=== PATIENT | female | born 1945 | race Caucasian/White ===

== ENCOUNTER → 2016-09-08 | Outpatient (CLI) | payer OTHER | LOC: FIMAGING 11:09 | PROVIDERS: ATTEND Internal Medicine Hematology & Oncology | DX: K76.0 Fatty (change of) liver, not elsewhere classified (principal); K80.20 Calculus of gallbladder without cholecystitis without obstruction; Z85.3 Personal history of malignant neoplasm of breast; Z85.72 Personal history of non-Hodgkin lymphomas ==

== ENCOUNTER 2016-11-04 09:32 | Day surgery (SDC) | payer OTHER ==
[2016-11-04] MEDS ORDERED: NS 1,000 ML IV SCH (10:00)
[2016-11-04] MEDS ORDERED: ONDANSETRON 4 MG/2 ML VIAL ONE ×2 (10:29→16:17)
[2016-11-04] MEDS ORDERED: FLUMAZENIL 0.5 MG/5 ML MDV IVP ONE (10:29)
[2016-11-04] MEDS ORDERED: NALOXONE HCL 0.4 MG/ML INJ ONE (10:30)
[2016-11-04] MEDS ORDERED: fentaNYL 100 MCG/2 ML INJ ONE (10:30)
[2016-11-04] MEDS ORDERED: MIDAZOLAM 2 MG/2 ML VIAL ONE (10:30)
[2016-11-04 10:57] LABS: HEMATOCRIT 38.3 % (38.0-47.0)
[2016-11-04 11:07] LABS: INR 0.89 (0.83-1.16); PROTIME(PATIENT) 11.9 SEC (12.0-15.0)
[2016-11-04 11:08] LABS: APTT 30.3 SEC (23.0-38.0)
[2016-11-04 14:30] VITALS: RESP 16; TEMP 97.7
[2016-11-04 16:22] VITALS: BP 144/67; O2SAT 94
== END 2016-11-04 16:35 | disposition home or self-care (01) ==
LOC: FIMAGING 09:32
PROVIDERS: ATTEND Radiology Diagnostic Radiology
PROC: 0BBF3ZX Excision of Right Lower Lung Lobe, Percutaneous Approach, Diagnostic (ICD-10-PCS; principal; 2016-11-04 13:17)
PROC: 0BB63ZX Excision of Right Lower Lobe Bronchus, Percutaneous Approach, Diagnostic (ICD-10-PCS; principal; 2016-11-04 13:17)
DX: C78.01 Secondary malignant neoplasm of right lung (principal); I10 Essential (primary) hypertension; C85.90 Non-Hodgkin lymphoma, unspecified, unspecified site; Z85.3 Personal history of malignant neoplasm of breast; Z90.10 Acquired absence of unspecified breast and nipple
CPT/HCPCS: J2250; J2310; J2405; J3010

== ENCOUNTER 2016-11-06 23:03 | Observation (INO) | payer OTHER ==
--- NOTE | 2016-11-06 23:10 | EDPHY ---
H & P Stated Complaint: pain with breathing, fever after R lung biopsy HPI/ROS: HPI CHIEF COMPLAINT: [ ] HISTORY OF PRESENT ILLNESS: [Need 4: Location, Duration, Severity, Quality, Context, Timing Modifying Factors, Associated S&S] Past Medical History: Breast cancer status post bilateral mastectomy reconstruction, hypertension, GERD, Past Surgical History: Hysterectomy, bilateral mastectomy, tonsillectomy, adenoidectomy Social History: Denies daily use of drugs alcohol tobacco products. Family History: Noncontributory ROS REVIEW OF SYSTEMS: A comprehensive 10 point review of systems is otherwise negative aside from elements mentioned in the history of present illness. Exam Constitutional triage nursing summary reviewed, vital signs reviewed, awake/ alert. Eyes normal conjunctivae and sclera, EOMI, PERRLA. HENT normal inspection, atraumatic, moist mucus membranes, no epistaxis, neck supple/ no meningismus, no raccoon eyes. Respiratory clear to auscultation bilaterally, normal breath sounds, no respiratory distress, no wheezing. Cardiovascular rate normal, regular rhythm, no murmur, no edema, distal pulses normal. Gastrointestinal soft, non-tender, no rebound, no guarding, normal bowel sounds, no distension, no pulsatile mass. Genitourinary no CVA tenderness. Musculoskeletal no midline vertebral tenderness, full range of motion, no calf swelling, no tenderness of extremities, no meningismus, good pulses, neurovascularly intact. Skin pink, warm, & dry, no rash, skin atraumatic. Neurologic awake, alert and oriented x 3, AAOx3, moves all 4 extremities equally, motor intact, sensory intact, CN II-XII intact, normal cerebellar, normal vision, normal speech. Psychiatric normal mood/affect. Heme/Lymph/Immune no lymphadenopathy. Differential Diagnosis: Medical Decision Making: Re-evaluation: Source: Patient - Personal History Current Tetanus/Diphtheria Vaccine: Unsure Current Tetanus Diphtheria and Acellular Pertussis (TDAP): Unsure - Medical/Surgical History Hx Asthma: No Hx Chronic Respiratory Disease: No Hx Diabetes: No Hx Cardiac Disease: No Hx Renal Disease: No Hx Cirrhosis: No Hx Alcoholism: No Hx HIV/AIDS: No Hx Splenectomy or Spleen Trauma: No Other PMH: hysterectomy, mastectomy, HTN, breast CA, nonhodgkins lymphoma 31years ago - Social History Smoking Status: Never smoked Constitutional: Initial Vital Signs Temperature (C) 37.6 C 11/06/16 23:05 Heart Rate 82 11/06/16 23:05 Respiratory Rate 18 11/06/16 23:05 Blood Pressure 162/65 H 11/06/16 23:05 O2 Sat (%) 97 11/06/16 23:05 O2 Delivery Mode Room Air Allergies/Adverse Reactions: hydrocodone bitartrate [From Vicodin] Allergy (Severe, Verified 10/21/16 17:38) Vomiting iodine Allergy (Severe, Verified 10/21/16 17:38) "carotid closes up" oxycodone HCl [From Percocet] Allergy (Severe, Verified 10/21/16 17:38) Vomiting HAYFEVER Allergy (Mild, Uncoded 07/28/12 15:37) ITCHY EYES/SNEEZING/RUNNY NOSE Home Medications: Medication Instructions Recorded Calcium Carbonate [Tums 500MG 500 - 1,000 mg PO PRN 07/28/12 (OTC)] Lisinopril/Hctz 20/12.5MG 1 ea PO BID 07/28/12 [Zestoretic/Prinzide] Cetirizine [ZyrTEC 10 mg (RX)] 10 mg PO PRN 09/14/12 Meloxicam 10/28/16 Departure - Departure Referrals: Epifanio Flowers MD [Primary Care Provider] - As per Instructions
--- NOTE | 2016-11-06 23:26 | EDPHY ---
H & P Stated Complaint: pain with breathing, fever after R lung biopsy Source: Patient, Old records - Personal History Current Tetanus/Diphtheria Vaccine: Unsure Current Tetanus Diphtheria and Acellular Pertussis (TDAP): Unsure - Medical/Surgical History Hx Asthma: No Hx Chronic Respiratory Disease: No Hx Diabetes: No Hx Cardiac Disease: No Hx Renal Disease: No Hx Cirrhosis: No Hx Alcoholism: No Hx HIV/AIDS: No Hx Splenectomy or Spleen Trauma: No Other PMH: hysterectomy, mastectomy, HTN, breast CA, nonhodgkins lymphoma 31years ago - Social History Smoking Status: Never smoked Time Seen by Provider: 11/06/16 23:14 HPI/ROS: CHIEF COMPLAINT: Shortness of breath fever HISTORY OF PRESENT ILLNESS: This is a 71-year-old female presenting to the emergency department complaining of shortness of breath with fever onset at 1700 today. Patient states she did have a lung biopsy on 11/04/2016 without complications, patient states she had been doing fine after the procedure until today. She does report taking 1000 mg of Tylenol at 2200 this evening, felt a little better but still having shortness of breath nausea fatigue, more tenderness to the area where the biopsy was performed. Denies any chest pain REVIEW OF SYSTEMS: Constitutional: Fever chills Eyes: No discharge. ENT: No sore throat. Cardiovascular: No chest pain, no palpitations. Respiratory: No cough. Shortness of breath. Gastrointestinal: No abdominal pain, no vomiting. Nausea Genitourinary: No hematuria. Musculoskeletal: Right-sided back pain. Skin: No rashes. Neurological: No headache (Alyce Reid) - Physical Exam Exam: General Appearance: Alert, no distress. Non ill nontoxic appearing Eyes: Pupils equal and round no pallor or injection. ENT, Mouth: Mucous membranes moist. Respiratory: There are no retractions, nonlabored respiratory effort. Diminished at the right base Cardiovascular: Regular rate and rhythm. Gastrointestinal: Abdomen is soft and nontender, no masses, bowel sounds normal. Neurological: No focal deficits. Answering questions appropriately Skin: Warm and dry, no rashes. Musculoskeletal: Neck is supple nontender. right posterior back tenderness at the area of lung biopsy no erythema Extremities: symmetrical, full range of motion. Psychiatric: Patient is oriented X 3, there is no agitation. (Alyce Reid) Constitutional: Initial Vital Signs Temperature (C) 37.6 C 07/29/17 23:05 Heart Rate 82 11/06/16 23:05 Respiratory Rate 18 11/06/16 23:05 Blood Pressure 162/65 H 11/06/16 23:05 O2 Sat (%) 97 11/06/16 23:05 O2 Delivery Mode Room Air Allergies/Adverse Reactions: hydrocodone bitartrate [From Vicodin] Allergy (Severe, Verified 11/07/16 08:19) Vomiting iodine Allergy (Severe, Verified 11/07/16 08:19) "carotid closes up" oxycodone HCl [From Percocet] Allergy (Severe, Verified 11/07/16 08:19) Vomiting HAYFEVER Allergy (Mild, Uncoded 07/28/12 15:37) ITCHY EYES/SNEEZING/RUNNY NOSE Home Medications: Medication Instructions Recorded Calcium Carbonate [Tums 500MG (*)] 500 - 1,000 mg PO DAILY PRN 07/28/12 Lisinopril/Hctz 20/12.5MG 1 ea PO BID 07/28/12 [Zestoretic/Prinzide 20/12.5MG (*)] Meloxicam 15 mg PO DAILY 11/07/16 Medical Decision Making - Diagnostics Imaging Results: Imaging Impressions Chest CT 11/07/16 00:36 Impression: 1. Mild right-sided pneumothorax in the order of about 10-15%. 2. Lobulated mass once again noted at the right lung base posteriorly. This was recently biopsied. 3. Cholelithiasis. 4. Right upper pole renal cyst. The study was performed as an emergency on-call case and discussed by telephone with Alyce Reid NP at 0102 hrs. The final interpretation is concordant with the original communication. ED Course/Re-evaluation: Discussed ED plan of care: CBC, BMP, chest x-ray 0030: Patient states feeling better, nonlabored respiratory distress denies any shortness of breath no chest pain 0105: Spoke with Dr. Calderon small right-sided pneumothorax 0110: Dr. Harris and consult with Dr. Spence patient to be inpatient Obs for 24 hours repeat chest x-ray tomorrow 0120: Discussed plan with patient, patient agreed. Stable nonlabored respiratory effort no hypoxia no chest pain (Alyce Reid) Differential Diagnosis: Other differential diagnosis considered but not limited to hemopneumothorax, pneumonia, pleural effusion and sepsis (Alyce Reid) - Data Points Laboratory Results: Laboratory Results 11/06/16 23:35 11/06/16 23:35 Medications Given: Discontinued Medications Ibuprofen (Motrin) 600 mg PO EDNOW ONE Stop: 11/06/16 23:31 Last Admin: 11/06/16 23:32 Dose: 600 mg Departure - Departure Disposition: [facility] Inpatient Acute Clinical Impression: Pneumothorax Qualifiers: Pneumothorax type: postprocedural Qualified Code(s): J95.811 - Postprocedural pneumothorax Condition: Good
[2016-11-06] MEDS ORDERED: IBUPROFEN 600 MG TAB PO ONE ×2 (23:30)
[2016-11-07 00:04] LABS: % IMMATURE GRANULYOCYTES 0.4 % (0.0-1.1); ABSOLUTE IMMATURE GRANULOCYTES 0.03 10^3/uL (0.00-0.10); ADD DIFF? NO; ADD MORPH? NO; ADD SCAN? NO; ATYPICAL LYMPHOCYTE FLAG 0 (0-99); FRAGMENT RBC FLAG 0 (0-99); HEMATOCRIT 31.4 % (38.0-47.0); LEFT SHIFT FLG 0 (0-99); LIPEMIA HEMOLYSIS FLAG 90 (0-99); MEAN CELL HEMOGLOBIN 28.9 pg (27.9-34.1); MEAN CELL VOLUME 82.6 fL (81.5-99.8); MEAN PLATELET VOLUME 9.7 fL (8.7-11.7); PLATELET CLUMPS FLAG 0 (0-99); PLATELET COUNT 282 10^3/uL (150-400); RED CELL DISTRIBUTION WIDTH 14.2 % (11.5-15.2)
[2016-11-07 00:22] LABS: ANION GAP 11 mEq/L (8-16); CALCIUM 9.7 mg/dL (8.5-10.4); CARBON DIOXIDE 22 mEq/l (22-31); CHLORIDE 103 mEq/L (97-110); CREATININE 1.1 mg/dL (0.6-1.0); GLOMERULAR FILTRATION RATE 49; GLUCOSE 129 mg/dL (70-100); POTASSIUM 3.5 mEq/L (3.5-5.2); SODIUM 136 mEq/L (134-144)
[2016-11-07] MEDS ORDERED: PROMETHAZINE HCL 25 MG/ML INJ IVP PRN (04:14)
[2016-11-07] MEDS ORDERED: ONDANSETRON 4 MG/2 ML VIAL IVP PRN (04:14)
[2016-11-07] MEDS ORDERED: ALBUTEROL 3 ML DEYVIAL IH PRN (04:14)
[2016-11-07] MEDS ORDERED: oxyCODONE IR 5 MG TAB PO PRN (04:14)
[2016-11-07] MEDS ORDERED: HYDROmorphONE/DILAUDID 1 MG/ML SYR IVP PRN (04:14)
[2016-11-07] MEDS ORDERED: ACETAMINOPHEN 325 MG TAB PO PRN (04:14)
[2016-11-07] MEDS ORDERED: ONDANSETRON DISINTEGRATING 4 MG TAB PO PRN (04:14)
--- NOTE | 2016-11-07 07:55 | PDGENHP ---
History and Physical - Chief Complaint chest pain/sob - History of Present Illness 71 yo F wiht PMH of breast cancer as well as NHL admitted today with chest pain and sob after undergoing needle lung biopsy for a lung mass on 11/05. She was seen in the ER and initially no abnormalities noted on chest x ray. Her symptoms did not improve despite monitoring in the ER for several hours and therefore a CT scan was obtained showing a 10-15% pneumothorax. She has otherwise felt well and has no other complaints. She feels better with the oxygen on but still has chest discomfort when she takes a deep breath or is moving. The scan was discussed with IR by the ER doctor, and they recommended that given the small size, conservative management would be appropriate but they will follow while she is in house. History Information - Allergies/Home Medication List Allergies/Adverse Reactions: hydrocodone bitartrate [From Vicodin] Allergy (Severe, Verified 10/21/16 17:38) Vomiting iodine Allergy (Severe, Verified 10/21/16 17:38) "carotid closes up" oxycodone HCl [From Percocet] Allergy (Severe, Verified 10/21/16 17:38) Vomiting HAYFEVER Allergy (Mild, Uncoded 07/28/12 15:37) ITCHY EYES/SNEEZING/RUNNY NOSE Home Medications: Calcium Carbonate [Tums 500MG (OTC)] 500 - 1,000 mg PO PRN 07/28/12 [Last Taken 05/11/12] Lisinopril/Hctz 20/12.5MG [Zestoretic/Prinzide] 1 ea PO BID 07/28/12 [Last Taken 10/21/16] Cetirizine [ZyrTEC 10 mg (RX)] 10 mg PO PRN 09/14/12 [Last Taken Unknown] Meloxicam 15 mg PO DAILY 11/07/16 [Last Taken Unknown] Pravastatin Sodium 20 mg PO DAILY 11/07/16 [Last Taken Unknown] I have personally reviewed and updated: family history, medical history, social history, surgical history - Past Medical History cancer (breast cancer, NHL), GERD, hypertension - Surgical History Reports: cancer surgery (mastectomy), hysterectomy Additional surgical history: cataract surgery. tonsillectomy - Family History Positive for: cancer (mother/aunt/cousin with breast cancer) - Social History Smoking Status: Never smoked Alcohol Use: Rarely Drug Use: None Review of Systems ROS: 10pt was reviewed & negative except for what was stated in HPI & below Physical Exam Temp Pulse Resp BP Pulse Ox 36.6 C 52 L 18 136/70 H 98 11/07/16 06:00 11/07/16 06:00 11/07/16 06:00 11/07/16 06:00 11/07/16 06:00 O2 (L/minute) 2 Constitutional: no apparent distress, appears nourished Eyes: PERRL Ears, Nose, Mouth, Throat: moist mucous membranes, hearing normal Cardiovascular: regular rate and rhythym, no murmur, rub, or gallop, systolic murmur Respiratory: no respiratory distress, no rales or rhonchi, reduced air movement Gastrointestinal: normoactive bowel sounds, soft, non-tender abdomen Genitourinary: no bladder tenderness Skin: warm, normal color Musculoskeletal: full muscle strength, no muscle tenderness Neurologic: AAOx3 Psychiatric: interacting appropriately, not anxious, not encephalopathic Lab Data & Imaging Review 11/06/16 23:35 11/06/16 23:35 WBC 7.60 10^3/uL (3.80-9.50) 11/06/16 23:35 RBC 3.80 10^6/uL (4.18-5.33) L 11/06/16 23:35 Hgb 11.0 g/dL (12.6-16.3) L 11/06/16 23:35 Hct 31.4 % (38.0-47.0) L 11/06/16 23:35 MCV 82.6 fL (81.5-99.8) 11/06/16 23:35 MCH 28.9 pg (27.9-34.1) 11/06/16 23:35 MCHC 35.0 g/dL (32.4-36.7) 11/06/16 23:35 RDW 14.2 % (11.5-15.2) 11/06/16 23:35 Plt Count 282 10^3/uL (150-400) D 11/06/16 23:35 MPV 9.7 fL (8.7-11.7) 11/06/16 23:35 Neut % (Auto) 75.3 % (39.3-74.2) H 11/06/16 23:35 Lymph % (Auto) 13.8 % (15.0-45.0) L 11/06/16 23:35 [place] % (Auto) 8.0 % (4.5-13.0) 11/06/16 23:35 Eos % (Auto) 2.0 % (0.6-7.6) 11/06/16 23:35 Baso % (Auto) 0.5 % (0.3-1.7) 11/06/16 23:35 Nucleat RBC Rel Count 0.0 % (0.0-0.2) 11/06/16 23:35 Absolute Neuts (auto) 5.72 10^3/uL (1.70-6.50) 11/06/16 23:35 Absolute Lymphs (auto) 1.05 10^3/uL (1.00-3.00) 11/06/16 23:35 Absolute Monos (auto) 0.61 10^3/uL (0.30-0.80) 11/06/16 23:35 Absolute Eos (auto) 0.15 10^3/uL (0.03-0.40) 11/06/16 23:35 Absolute Basos (auto) 0.04 10^3/uL (0.02-0.10) 11/06/16 23:35 Absolute Nucleated RBC 0.00 10^3/uL (0-0.01) 11/06/16 23:35 Immature Gran % 0.4 % (0.0-1.1) 11/06/16 23:35 Immature Gran # 0.03 10^3/uL (0.00-0.10) 11/06/16 23:35 Sodium 136 mEq/L (134-144) 11/06/16 23:35 Potassium 3.5 mEq/L (3.5-5.2) 11/06/16 23:35 Chloride 103 mEq/L (97-110) 11/06/16 23:35 Carbon Dioxide 22 mEq/l (22-31) 11/06/16 23:35 Anion Gap 11 mEq/L (8-16) 11/06/16 23:35 BUN 17 mg/dL (7-23) 11/06/16 23:35 Creatinine 1.1 mg/dL (0.6-1.0) H 11/06/16 23:35 Estimated GFR 49 11/06/16 23:35 Glucose 129 mg/dL (70-100) H 11/06/16 23:35 Calcium 9.7 mg/dL (8.5-10.4) 11/06/16 23:35 Visualized and Interpreted imaging results: Yes Interpretation: CT chest with right sided pneumothorax Assessment & Plan Assessment: Pneumothorax (Acute) 71 yo F with PMH of breast cancer as well as NHL presenting with right sided ptx s/p needle biopsy of lung mass # pneumothorax: relatively small and patient only mildly symptomatic with a plan to manage conservatively for now with supplemental o2 and serial imaging. IR is aware and will follow. Will try to keep sats in the high 90s with supplemental o2. # lung mass: s/p biopsy with pathology pending, on personal review of CT scan noted to have a lobulated RLL mass # hx of breast cancer/hx of NHL # observation status, will likely need < 48 hours stay for eval/mgmt of above Patient new to my care. Old records reviewed and summarized as above. Care plan reviewed with ER doctor.
[2016-11-07 15:51] VITALS: BP 139/78; PULSE 77; RESP 16; TEMP 98.2; O2SAT 91
--- NOTE | 2016-11-08 06:33 | GDS ---
[f rep st] DISCHARGE SUMMARY DISCHARGE DIAGNOSES: 1. Right-sided pneumothorax, status post lung biopsy. 2. History of non-Hodgkin lymphoma. HISTORY: This is a 71-year-old female with a history of breast cancer, non-Hodgkin lymphoma, who pr esented with chest pain, shortness of breath after lung biopsy 2 days prior. HOSPITAL COURSE: The patient was noted to have 10% to 15% pneumothorax. She was monitored overnigh t. Repeat chest x-ray about 16 hours later did not show any change in the pneumothorax. Her sympto ms are well controlled with just Tylenol. The case was discussed with Interventional Radiology. Sh e will be discharged home, and will follow up tomorrow to get another chest x-ray. Interventional R adiology is aware and will look for the chest x-ray. /[id number]/MODL
== END 2016-11-07 17:50 | disposition home or self-care (01) ==
LOC: F1N 11-07 02:20
PROVIDERS: ADMIT Internal Medicine; ATTEND Internal Medicine
DX: J95.811 Postprocedural pneumothorax (principal); R91.1 Solitary pulmonary nodule; I10 Essential (primary) hypertension; N28.1 Cyst of kidney, acquired; K80.20 Calculus of gallbladder without cholecystitis without obstruction; Z85.3 Personal history of malignant neoplasm of breast; Z85.72 Personal history of non-Hodgkin lymphomas; Z80.3 Family history of malignant neoplasm of breast
CPT/HCPCS: 71020; 71250; G0378

== ENCOUNTER 2017-01-15 15:18 | Inpatient (IN) | payer OTHER ==
--- NOTE | 2017-01-15 15:37 | EDPHY ---
H & P Stated Complaint: diarrhea daily x 1 wk, heartburn x 1 wk, throbbing JOHNSON HPI/ROS: CHIEF COMPLAINT: Diarrhea, Heart burn, Headache HISTORY OF PRESENT ILLNESS: The patient is a 71-year-old female with history of breast cancer with metastasis to the lung. She was on chemotherapy, but stopped taking it yesterday of her own accord. She presents today with 1 week of diarrhea. She reports 5 episodes per day. She has been drinking coke with corn starch for her diarrhea, but has not found any relief. The patient has a history of GERD which she manages with diet. For the past week she has been experiencing severe heart burn. This pain remains constant, it is alleviated temporarily with milk and Pepto Bismol. The patient developed a headache and lightheadedness when standing today. Her headache improves when lying down. She checked her blood pressure at home and found it to be 60s/50s. She feels weaker than usual when standing. The patient denies fever, abdominal pain, or urinary complaints. REVIEW OF SYSTEMS: A ten point review of systems was performed and is negative with the exception of the items mentioned in the HPI. Past medical history: Breast caner with metastasis to the lung, GERD, Hypertension Past surgical history: Mastectomy, Hysterectomy, Tonsillectomy Family history: Positive for cancer. Social history: Nonsmoker. Rare alcohol use. No drug use. General Appearance: Alert. Vital signs reviewed. BP 110/69, heart rate 108 at triage. Eyes: Pupils equal and round, no conjunctival injection, no discharge. Anicteric. ENT, Mouth: Mucous membranes are moist, no oropharyngeal erythema or edema. Neck: No lymphadenopathy, supple. Respiratory: Lungs are clear to auscultation; no wheezes, rales, or rhonchi. Cardiovascular: Tachycardic; no murmur, rub, or gallop. Gastrointestinal: Abdomen is soft and nontender, no masses or organomegaly, bowel sounds normal. Skin: Warm and dry, no rashes on exposed skin, normal color. Back: Nontender to palpation over the thoracolumbar spine. No CVAT. Extremities: No lower extremity edema, no calf tenderness or swelling. Neurological: Alert and oriented. Moving all four extremities easily and equally. Psychiatric: Normal affect. Source: Patient Exam Limitations: No limitations - Personal History Current Tetanus/Diphtheria Vaccine: Unsure Current Tetanus Diphtheria and Acellular Pertussis (TDAP): Unsure - Medical/Surgical History Hx Asthma: No Hx Chronic Respiratory Disease: No Hx Diabetes: No Hx Cardiac Disease: No Hx Renal Disease: No Hx Cirrhosis: No Hx Alcoholism: No Hx HIV/AIDS: No Hx Splenectomy or Spleen Trauma: No Other PMH: hysterectomy, mastectomy, HTN, breast CA, nonhodgkins lymphoma - Social History Smoking Status: Never smoked Constitutional: Initial Vital Signs Temperature (C) 37.1 C 01/15/17 15:27 Heart Rate 108 H 01/15/17 15:27 Respiratory Rate 16 01/15/17 15:27 Blood Pressure 110/69 01/15/17 15:27 O2 Sat (%) 95 01/15/17 15:27 O2 Delivery Mode Room Air Allergies/Adverse Reactions: hydrocodone bitartrate [From Vicodin] Allergy (Severe, Verified 11/07/16 08:19) Vomiting iodine Allergy (Severe, Verified 11/07/16 08:19) "carotid closes up" oxycodone HCl [From Percocet] Allergy (Severe, Verified 11/07/16 08:19) Vomiting HAYFEVER Allergy (Mild, Uncoded 07/28/12 15:37) ITCHY EYES/SNEEZING/RUNNY NOSE Home Medications: Medication Instructions Recorded Lisinopril/Hctz 20/12.5MG 1 ea PO BID 01/15/17 [Zestoretic/Prinzide 20/12.5MG (*)] Meloxicam 15 mg PO DAILY 01/15/17 Medical Decision Making - Diagnostics EKG Interpretation: 12 lead EKG is interpreted in Trace master View by cardiology physician. I have reviewed the EKG. Sinus rhythm, borderline T abnormalities. Rate 86. ED Course/Re-evaluation: Patient with history of breast cancer, previously on chemotherapy, but decided to stop two days ago. She presents today with 1 week of diarrhea and esophageal burning. The patient reports a minimum of 5 episodes of diarrhea per day. She has been feeling lightheaded and weak. Her blood pressure at home was reportedly in the 60s. The patient is orthostatic here. I ordered lab work including CBC, chemistry, and Troponin. The patient declined Pepcid originally. She now accepts it and is no longer having heart burn. I ordered an EKG. The patient had a cardiac work up within the last year including a Nuclear stress test. Per the patient, the test was normal. We do not have a report of this test. The patient's lab work shows hyponatremia, likely due to dehydration. Her creatinine is elevated at 1.4 (also likely due to volume depletion) and her WBC is also elevated. I ordered a GI pathogen panel when she is able to provide a stool sample. DDX includes infectious diarrhea vs side effect of chemo. C. difficile always a concern in this setting. 5:15 p.m.: I discussed the findings with the patient. Troponin is normal. I think that her esophageal burning pain is acid reflux, not ACS. The patient lives at home alone. I recommend admission for further hydration, stool studies. She is receiving IV fluids. She is no longer having heart burn. 5:30 p.m.: I spoke to the hospitalist, Dr. Graham, she accepts the patient for admission. - Data Points Laboratory Results: Laboratory Results 01/16/17 05:21 01/16/17 05:21 Medications Given: Acetaminophen (Tylenol) 650 mg PO Q4 PRN PRN Reason: Pain, Mild/Fever, Can Take PO Stop: 07/14/17 19:57 Last Admin: 01/17/17 21:24 Dose: 650 mg Diphenoxylate HCl/Atropine (Lomotil) 1 tab PO QID PRN PRN Reason: Diarrhea/Loose Stools Stop: 07/17/17 16:14 Last Admin: 01/20/17 22:41 Dose: 1 tab Enoxaparin Sodium (Lovenox) 40 mg SC DAILY [facility] Stop: 07/15/17 08:59 Last Admin: 01/20/17 09:29 Dose: Not Given Hyoscyamine Sulfate (Levsin, Hyomax-Sl) 0.125 mg PO Q6HRS PRN PRN Reason: Cramping abdominal pain. Stop: 07/17/17 09:17 Last Admin: 01/20/17 12:08 Dose: 0.125 mg Levofloxacin (Levaquin) 500 mg PO DAILY10 [facility] Stop: 02/18/17 09:59 Last Admin: 01/20/17 09:29 Dose: 500 mg Pantoprazole Sodium (Protonix) 40 mg PO DAILY [facility] Stop: 07/15/17 08:59 Last Admin: 01/20/17 09:29 Dose: 40 mg Discontinued Medications Azithromycin (Zithromax) 500 mg PO DAILY [facility] PRN Reason: Protocol Stop: 02/16/17 20:29 Last Admin: 01/18/17 21:31 Dose: 500 mg Sodium Chloride (Ns) 1,000 mls @ 0 mls/hr IV EDNOW ONE; Wide Open PRN Reason: Protocol Stop: 01/15/17 16:01 Last Admin: 01/15/17 16:17 Dose: 1,000 mls Famotidine/Sodium Chloride (Pepcid 20 Mg (Premix)) 50 mls @ 200 mls/hr IV EDNOW ONE Stop: 01/15/17 17:47 Last Admin: 01/15/17 17:41 Dose: 50 mls Sodium Chloride (Ns) 1,000 mls @ 125 mls/hr IV CONT [facility] Stop: 07/14/17 19:59 Last Admin: 01/19/17 23:46 Dose: 1,000 mls Potassium Chloride (Potassium Cl 10 Meq (Premix)) 100 mls @ 100 mls/hr IV Q1H [facility] Stop: 01/16/17 02:29 Last Admin: 01/16/17 05:24 Dose: Not Given Potassium Chloride (Potassium Cl 10 Meq (Premix)) 100 mls @ 100 mls/hr IV ONCE ONE Stop: 01/16/17 06:14 Last Admin: 01/16/17 05:24 Dose: 100 mls Ceftriaxone Sodium/Dextrose (Rocephin 1 Gm (Premix)) 50 mls @ 100 mls/hr IV DAILY [facility] PRN Reason: Protocol Stop: 02/16/17 11:29 Last Admin: 01/18/17 09:02 Dose: 50 mls Magnesium Sulfate (Magnesium Sulf 2 Gm (Premix)) 50 mls @ 50 mls/hr IV ONCE ONE Stop: 01/17/17 16:27 Last Admin: 01/17/17 15:50 Dose: 50 mls Magnesium Sulfate (Magnesium Sulf 2 Gm (Premix)) 50 mls @ 50 mls/hr IV ONCE ONE Stop: 01/18/17 10:59 Last Admin: 01/18/17 09:20 Dose: Not Given Magnesium Sulfate/Dextrose (Magnesium Sulf 1 Gm (Premix)) 100 mls @ 100 mls/hr IV ONCE ONE Stop: 01/19/17 09:59 Last Admin: 01/19/17 08:09 Dose: 100 mls Loperamide HCl (Imodium) 2 mg PO QID PRN PRN Reason: Diarrhea/Loose Stools Stop: 07/15/17 21:43 Last Admin: 01/18/17 03:44 Dose: 2 mg Potassium Chloride (Klor-Con) 10 - 40 meq PO ONCE ONE PRN Reason: Protocol Stop: 01/16/17 10:33 Last Admin: 01/16/17 11:10 Dose: 20 meq Potassium Chloride (Klor-Con) 20 meq PO ONCE ONE PRN Reason: Protocol Stop: 01/16/17 11:16 Last Admin: 01/16/17 12:24 Dose: Not Given Potassium Chloride (Klor-Con) 40 meq PO ONCE ONE Stop: 01/18/17 23:31 Last Admin: 01/18/17 23:49 Dose: 40 meq Potassium Chloride (Klor-Con) 40 meq PO ONCE ONE Stop: 01/19/17 07:46 Last Admin: 01/19/17 09:47 Dose: 40 meq Departure - Departure Disposition: [facility] Inpatient Acute Clinical Impression: Diarrhea Qualifiers: Diarrhea type: unspecified type Qualified Code(s): R19.7 - Diarrhea, unspecified Condition: Fair Report Scribed for: Kirti Pierre Report Scribed by: Sunni Cho Date of Report: 01/15/17 Time of Report: 15:58 Physician Review and Approval Statement: 01/15/17 15:36 Portions of this note were transcribed by the medical genetics director. I, Dr. Kirti Pierre, personally performed the history, physical exam, and medical decision- making; and confirmed the accuracy of the information in the transcribed note.
[2017-01-15] MEDS ORDERED: NS 1,000 ML IV ONE (16:00)
[2017-01-15 16:06] LABS: % IMMATURE GRANULYOCYTES 0.3 % (0.0-1.1); ABSOLUTE IMMATURE GRANULOCYTES 0.03 10^3/uL (0.00-0.10); ADD DIFF? NO; ADD MORPH? NO; ADD SCAN? NO; ATYPICAL LYMPHOCYTE FLAG 0 (0-99); FRAGMENT RBC FLAG 0 (0-99); HEMATOCRIT 32.2 % (38.0-47.0); HEMOGLOBIN 11.8 g/dL (12.6-16.3); LEFT SHIFT FLG 10 (0-99); LIPEMIA HEMOLYSIS FLAG 90 (0-99); MEAN CELL HEMOGLOBIN 31.5 pg (27.9-34.1); MEAN CELL HEMOGLOBIN CONCENTR. 36.6 g/dL (32.4-36.7); MEAN CELL VOLUME 85.9 fL (81.5-99.8); MEAN PLATELET VOLUME 8.9 fL (8.7-11.7); PLATELET CLUMPS FLAG 0 (0-99); PLATELET COUNT 370 10^3/uL (150-400); RED BLOOD CELL COUNT 3.75 10^6/uL (4.18-5.33); RED CELL DISTRIBUTION WIDTH 19.9 % (11.5-15.2)
[2017-01-15 16:21] LABS: ANION GAP 16 mEq/L (8-16); CALCIUM 11.2 mg/dL (8.5-10.4); CARBON DIOXIDE 23 mEq/l (22-31); CHLORIDE 90 mEq/L (97-110); CREATININE 1.4 mg/dL (0.6-1.0); GLOMERULAR FILTRATION RATE 37; GLUCOSE 132 mg/dL (70-100); POTASSIUM 3.3 mEq/L (3.5-5.2); SODIUM 129 mEq/L (134-144)
--- NOTE | 2017-01-15 16:26 | CPEKG ---
Heart Rate: 86 RR Interval: 698 P-R Interval: 124 QRSD Interval: 84 QT Interval: 324 QTC Interval: 388 P [place]: 54 QRS [place]: 10 T Wave [place]: -8 EKG Severity - BORDERLINE ECG - EKG Impression: SINUS RHYTHM EKG Impression: BORDERLINE T ABNORMALITIES, INFERIOR LEADS Electronically Signed By: Jan Garcia 16-Jan-2017 09:43:25
[2017-01-15] MEDS ORDERED: FAMOTIDINE 20 MG/NACL 50 ML IV ONE (17:33)
[2017-01-15] MEDS ORDERED: PROMETHAZINE HCL 25 MG/ML INJ IVP PRN (19:58)
[2017-01-15] MEDS ORDERED: ONDANSETRON 4 MG/2 ML VIAL IVP PRN (19:58)
[2017-01-15] MEDS ORDERED: PROTOCOL POTASSIUM 1 DOSE MISC PRN (19:59)
--- NOTE | 2017-01-15 20:51 | GHP ---
[f rep st] HISTORY AND PHYSICAL DATE OF ADMISSION: 01/15/2017 CHIEF COMPLAINT: Diarrhea. HISTORY OF PRESENT ILLNESS: The patient is a 71-year-old female, with breast cancer and lung metasta ses, on chemotherapy. She presents with severe diarrhea 5 times a day for the last week. She is get ting more weak at home. Specifically, when she tried to get, her head would throb and she would get so weak she would have to flop back down on a chair or the bed. She feels very dehydrated. She has GERD, which is getting much worse. She has had decreased p.o. intake due to the severe heartburn. A lso, whenever she eats anything, it goes right through her. PAST MEDICAL HISTORY: 1. Breast cancer with lung metastases. 2. Non-Hodgkin lymphoma 31 years ago. 3. Peripheral neuropathy due to chemotherapy. 4. GERD. PAST SURGICAL HISTORY: Mastectomy, hysterectomy. MEDICATIONS: Please see computer record for full detailed list. ALLERGIES: Iodine, hydrocodone and oxycodone. SOCIAL HISTORY: No smoking. No alcohol. She lives independently at [facility]. REVIEW OF SYSTEMS: Complete review of systems obtained. Review of systems negative regarding consti tutional, HEENT, GI, pulmonary, cardiovascular, , hematology, skin, muscular, endocrine, psych, exc ept for positives and negatives as in HPI. FAMILY HISTORY: Positive for breast cancer. PHYSICAL EXAMINATION: GENERAL: A well-developed, well-nourished female, in no acute distress. MICHAEL L SIGNS: Temperature is 37.1, pulse 108, blood pressure 145/95, saturating 94% on room air. EYES: Normal conjunctivae. Pupils equal and react light. ENT: Normal ears, nose. Hearing intact. Sandrita l teeth. Oropharynx moist. NECK: Trachea midline. No thyromegaly. CHEST: Normal respiratory eff ort. LUNGS: Clear to auscultation bilaterally. CARDIOVASCULAR: Regular rate and rhythm. No murmu r. No lower extremity edema. ABDOMEN: Soft, nontender. No hepatosplenomegaly. SKIN: Warm, dry, intact, without rash. MUSCULOSKELETAL: No cyanosis or clubbing. Strength 5/5 upper and lower extre mities. NEUROLOGIC: Cranial nerves intact. Normal sensation to light touch. PSYCH: Alert and luis ented x3. Normal affect. Normal judgment and insight. Normal memory. LABORATORY DATA: White count 11.22, hematocrit 32.2, platelets 370. Sodium 129, potassium 3.3, chlo ride 90, bicarb 23, BUN 30, creatinine 1.4, glucose 132. Troponin 0.018. IMAGING: EKG viewed by me, my personal interpretation is normal sinus rhythm, no ST-T wave changes. HOSPITAL COURSE: This case was discussed with Dr. Kirti Pierre, emergency room provider. Patient d id not have any diarrhea in the emergency room. She was unable to send a GI PCR. ASSESSMENT/PLAN: 1. Orthostatic hypotension secondary to dehydration from severe diarrhea. We will hydrate overnight with IV fluids and recheck orthostatics in the morning. 2. Diarrhea. We will check a GI PCR when she has a stool. 3. Acute renal failure. She is hypovolemic. I anticipate this will improve with IV fluids. 4. Hyponatremia due to hypovolemia. I anticipate this will improve with IV fluids. 5. Breast cancer with lung metastases. The patient desires to hold chemotherapy at this time. 6. Gastroesophageal reflux disease. We will start her empirically on a proton pump inhibitor and mo nitor. CODE STATUS: DNR. ADMISSION STATUS: We will admit to Observation. Rapidity of improvement will determine length of in patient treatment. DVT PROPHYLAXIS: She is high risk. We will place her on subcu Lovenox. /[id number]/MODL
[2017-01-15] MEDS: POTASSIUM Cl (KCl) 100 ML IV SCH (23:56)
[2017-01-16] MEDS: POTASSIUM Cl (KCl) 100 ML IV SCH ×2 (02:42→05:24)
[2017-01-16] MEDS ORDERED: POTASSIUM Cl (KCl) 100 ML IV ONE (05:15)
[2017-01-16] MEDS: ACETAMINOPHEN 325 MG TAB PO PRN ×3 (05:23→21:38)
[2017-01-16 05:42] LABS: ANION GAP 12 mEq/L (8-16); CALCIUM 9.8 mg/dL (8.5-10.4); CARBON DIOXIDE 22 mEq/l (22-31); CHLORIDE 97 mEq/L (97-110); CREATININE 1.3 mg/dL (0.6-1.0); GLOMERULAR FILTRATION RATE 40; GLUCOSE 118 mg/dL (70-100); MAGNESIUM 1.3 mg/dL (1.6-2.3); POTASSIUM 3.6 mEq/L (3.5-5.2); SODIUM 131 mEq/L (134-144)
[2017-01-16 05:45] LABS: % IMMATURE GRANULYOCYTES 0.4 % (0.0-1.1); ABSOLUTE IMMATURE GRANULOCYTES 0.04 10^3/uL (0.00-0.10); ADD DIFF? NO; ADD MORPH? YES; ADD SCAN? NO; ATYPICAL LYMPHOCYTE FLAG 0 (0-99); FRAGMENT RBC FLAG 0 (0-99); HEMATOCRIT 31.6 % (38.0-47.0); HEMOGLOBIN 11.3 g/dL (12.6-16.3); LEFT SHIFT FLG 10 (0-99); LIPEMIA HEMOLYSIS FLAG 90 (0-99); MEAN CELL HEMOGLOBIN 31.5 pg (27.9-34.1); MEAN CELL HEMOGLOBIN CONCENTR. 35.8 g/dL (32.4-36.7); MEAN PLATELET VOLUME 8.8 fL (8.7-11.7); PLATELET CLUMPS FLAG 0 (0-99); PLATELET COUNT 296 10^3/uL (150-400); RED BLOOD CELL COUNT 3.59 10^6/uL (4.18-5.33)
[2017-01-16 05:46] LABS: RED CELL DISTRIBUTION WIDTH 20.1 % (11.5-15.2)
[2017-01-16 06:16] LABS: MACROCYTES 1+; MICROCYTES 1+; PLATELET ESTIMATE ADEQUATE (ADEQ)
[2017-01-16] MEDS: PANTOPRAZOLE SODIUM 40 MG TAB PO SCH (08:21)
[2017-01-16] MEDS: ENOXAPARIN 40 MG/0.4 ML SYR SC SCH (08:22)
[2017-01-16] MEDS ORDERED: POTASSIUM CL 10 MEQ TAB PO ONE ×2 (10:32→11:15)
--- NOTE | 2017-01-16 12:29 | GCON ---
[f rep st] CONSULTATION REASON FOR CONSULTATION: GI toxicity from capecitabine. RECOMMENDATIONS: 1. Hold the dose of capecitabine. 2. Imodium. 3. IV hydration. 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 She had a cumulative dose of 90 mg/m2 of Doxorubicin when she was treated with MOPP/ABVD. In July 2012, she had a T2 (2.9 cm) infiltrating ductal carcinoma, with a satellite nodule of 1 cm grade 3, with borderline enlarged internal mammary node at 7.8 mm that was PET negative. She also had a sentinel node which had 100 cytokeratin cells. She was T2 N0 (i+) M0 stage IIA, ER/AR/Her2 + . She received TCH from September 05 to December 28, 2012 for 6 cycles followed by AI and then completed Herceptin in August 22, 2013. The patient then recurred in 2 areas this summer, 1 was in the left internal mammary node and the other is a 3 cm right lower lobe pulmonary nodule. Pulmonary nodule was biopsied and found to be ER/AR negative, HER2 3+. She was offered treatment based on the Silvia trial of Taxotere, Perjeta and Herceptin and declined. So we treated her with capecitabine and Tykerb, an all oral regimen. She currently is taking 2 g 2000 mg a day, days 1 through 14 q.28 days of capecitabine with Tykerb continuously 1000 mg a day. She has had a feeling in her stomach of a "scrambled" feeling in her abdomen but she developed diarrhea grade 2 in the last several days. She did not contact the office and presented to the emergency room for evaluation. She has also had some grade 1 hand-foot syndrome. She recently increased from 8542-5028 mg of capecitabine daily, the likely culprit. The laboratory data here in the hospital showed normal electrolytes and some pre renal azotemia with a BUN of 31 , creatinine 1.3. Otherwise laboratory data was fairly normal except for some hypomagnesemia with a magnesium 1.3. PAST MEDICAL HISTORY: Significant for a remote history of lymphoma as noted. I do not think that has anything to do with what is happening now. She has also had a total abdominal hysterectomy with BSO and she has had reduction mammoplasty in the past. She also has had a cataract operation on the right side. She has had no transfusions. And subsequently has had bilateral mastectomies with reconstructive surgery at the time of diagnosis of her breast cancer. SOCIAL HISTORY: Reveals she lives alone. She grew up in [place] but had relocated to [facility] for 15 years or more. Right now, she is running a storage facility. She is and has no children. Has a good support system. She is G0, P0, AB0. REVIEW OF SYSTEMS: Is unremarkable for any fever, night sweats. PHYSICAL EXAMINATION: VITAL SIGNS: Her weight is reported in the office at 147 and here in the hospital her weight is reported at 63.5 kilos. HEENT: She has no scleral icterus. No alopecia totalis. No stomatitis. No cervical adenopathy. LUNGS: Clear to P and A. CV: S1 normal, S2 normally split. No S3, S4, murmur. CHEST: She is status post mastectomy. ABDOMEN: She has no abdominal tenderness. There is no hepatosplenomegaly. EXTREMITIES: No extremity edema or calf tenderness. NEUROLOGICALLY: Intact. ASSESSMENT: 1. Grade 2 diarrhea. 2. Metastatic HER2 positive breast cancer with lung and internal mammary node. PLAN: Order a chest x-ray to follow up on her pulmonary nodule while she is in. The patient chooses to be treated with hydration and Imodium and should recover very quickly, and then would be dependent on her preferences but obviously would recommend resuming treatment with dose reduction of capecitabine back the 1500 mg. We will address this as time goes on. /[id number]/MODL MTDD
--- NOTE | 2017-01-16 13:07 | HOSPPROG ---
Hospitalist Progress Note Assessment/Plan: #Chemo-related diarrhea: GI panel negative. PRN Immodium #Orthostatic hypotension: due to dehydration. Increase NS to 125ml/hr #Acid reflux: PPI #Metastatic HER-2 positive breast cancer: once improved, will be started on reduced dose Capecitabine #Hypovolemic hyponatremia: improved with IVFs #Leukocytosis: resolved. Due to dehydration. Negative GI panel. UA pending #Weakness: PT/OT #Diet: regular #DVT ppx: Lovenox #Disp: cont inpt admission orthostatic hypotension, requires IVFs Subjective: no dizziness or throbbing JOHNSON now Objective: Vital Signs Temp Pulse Resp BP Pulse Ox 37.3 C 83 12 88/57 L 97 01/16/17 08:00 01/16/17 08:00 01/16/17 08:00 01/16/17 08:00 01/16/17 08:00 Microbiology 01/16/17 05:06 Gastrointestinal Tract Panel (PCR) - Final Stool No Organism Detected Laboratory Results 01/16/17 05:21 01/16/17 05:21 01/15/17 01/16/17 01/17/17 05:59 05:59 05:59 Intake Total 670 Balance 670 - Physical Exam Constitutional: no apparent distress Eyes: PERRL Ears, Nose, Mouth, Throat: moist mucous membranes, dry mucous membranes Cardiovascular: regular rate and rhythym, no murmur, rub, or gallop Respiratory: no respiratory distress, no rales or rhonchi Gastrointestinal: normoactive bowel sounds, soft, non-tender abdomen Genitourinary: no bladder fullness, no bladder tenderness, No lee in urethra Skin: warm Musculoskeletal: full muscle strength Neurologic: AAOx3, CN II-XII Intact Psychiatric: interacting appropriately ICD10 Worksheet Patient Problems: Problems Problem Status Onset Diarrhea Acute Benign hypertension Active GERD - Gastroesophageal reflux disease Active History of non-Hodgkins lymphoma Active 04/11/85 Neoplasm of breast Active 08/02/12 Sensory neuropathy Active Pneumothorax Acute
--- NOTE | 2017-01-16 13:34 | PDMN ---
Medical Necessity Medical necessity: C/M review: est. > 2 MN LOS for eval and TX of acute and persistent chemo related diarrhea, orthostatic hypotension, hypovolemic hyponatremia, weakness, requiring ongoing IV fluids, acute inpt PT/OT, comorbid metastatic HER-2 positive breast cancer, acid reflux per 01/16/2017 Hospitalist progress note.
--- NOTE | 2017-01-16 17:25 | ASMTCMCOM ---
CM Note CM Note Notes: Reviewed chart, spoke w/ SHENG Subramanian re: d/c poc, pt's progress. Pt admitted w/ severe diarrhea, increased weakness; breast ca w/ mets to lung, currently on chemo. Hx includes Non-Hodgkins lymphoma 31 yrs ago, peripheral neuropathy d/t chemo and GERD. Pt lives independently at [facility]. Anticipate pt will likely return to when medically stable. CM will cont to follow. Date Signed: 01/16/2017 05:25 PM Electronically Signed By:Mary Jane Rebolledo RN
[2017-01-16 19:35] LABS: POTASSIUM 3.4 mEq/L (3.5-5.2)
[2017-01-16] MEDS: NS 1,000 ML IV SCH (21:38)
[2017-01-16] MEDS: LOPERAMIDE HCL 2 MG CAP PO PRN (21:57)
[2017-01-17 04:57] LABS: HEMATOCRIT 27.1 % (38.0-47.0); HEMOGLOBIN 9.6 g/dL (12.6-16.3); MEAN CELL HEMOGLOBIN 31.5 pg (27.9-34.1); MEAN CELL HEMOGLOBIN CONCENTR. 35.4 g/dL (32.4-36.7); MEAN CELL VOLUME 88.9 fL (81.5-99.8); RED BLOOD CELL COUNT 3.05 10^6/uL (4.18-5.33)
[2017-01-17 05:02] LABS: RED CELL DISTRIBUTION WIDTH 20.7 % (11.5-15.2)
[2017-01-17 05:13] LABS: ANION GAP 6 mEq/L (8-16); CALCIUM 8.1 mg/dL (8.5-10.4); CARBON DIOXIDE 21 mEq/l (22-31); CHLORIDE 102 mEq/L (97-110); CREATININE 1.2 mg/dL (0.6-1.0); GLOMERULAR FILTRATION RATE 44; GLUCOSE 105 mg/dL (70-100); POTASSIUM 3.5 mEq/L (3.5-5.2); SODIUM 129 mEq/L (134-144)
[2017-01-17] MEDS: ACETAMINOPHEN 325 MG TAB PO PRN ×3 (05:44→21:24)
[2017-01-17] MEDS: NS 1,000 ML IV SCH (05:44)
[2017-01-17] MEDS: LOPERAMIDE HCL 2 MG CAP PO PRN ×4 (05:44→21:24)
[2017-01-17 07:15] LABS: COLOR YELLOW; LEUKOCYTE ESTERASE,URINE 2+ (NEGATIVE); NITRITE,URINE NEGATIVE (NEGATIVE)
[2017-01-17 07:22] LABS: BACTERIA TRACE /hpf (NONE SEEN); MUCUS 1+ /lpf (NONE-1+); RBC,URINE 15-25 /hpf (0-3); WBC,URINE 25-50 /hpf (0-3)
[2017-01-17] MEDS: PANTOPRAZOLE SODIUM 40 MG TAB PO SCH (09:28)
[2017-01-17] MEDS: ENOXAPARIN 40 MG/0.4 ML SYR SC SCH (09:28)
--- NOTE | 2017-01-17 09:39 | SOAPPROG ---
SOAP Progress Note Assessment/Plan: Assessment: 1. Her 2+ metastatic breast cancer with RLL (base) and Left internal mammary LN met. She has been on capecitabine 2000 mg and tykerb 1000 mg and developed grade 2 diarrhea. She is depressed and is expressing her desire to not take any more treatment. 2. Diarrhea: one loose stool this morning. 3. Esophagitis: PPI Plan: 01/17/17 09:34 Subjective: Hilda was diagnosed with Her 2 + recurrent metastatic breast cancer with a RLL ( base) of lung met and an internal mammary LN. She started on cap/tykerb after refusing docetaxel, herceptin, and pertuzumab. She came in with graade 2 diarrhea and heartburn. The diarrhea is improving. Objective: Vital Signs Temp Pulse Resp BP Pulse Ox 36.9 C 81 16 112/61 98 01/17/17 08:45 01/17/17 09:01 01/17/17 08:45 01/17/17 09:01 01/17/17 08:45 Laboratory Results 01/17/17 03:50 01/17/17 04:35 01/16/17 01/17/17 01/18/17 05:59 05:59 05:59 Intake Total 3301 Balance 3301 Looks depressed. Lungs clear. abdomen benign - Time Spent With Patient Time Spent With Patient: 30 min ICD10 Worksheet Patient Problems: Problems Problem Status Onset Neoplasm of breast Active 08/02/12 Sensory neuropathy Active History of non-Hodgkins lymphoma Active 04/11/85 Benign hypertension Active GERD - Gastroesophageal reflux disease Active Pneumothorax Acute Diarrhea Acute
--- NOTE | 2017-01-17 15:05 | HOSPPROG ---
Hospitalist Progress Note Assessment/Plan: #Fever: new today. +UA, so start IV Ceftriaxone, urine/blood cx pending. CXR ( personally reviewed), small RML opacity. Denies cough. Check procalcitonin #Chemo-related diarrhea: GI panel negative. PRN Immodium #Orthostatic hypotension: resolved with IVFs. #Acid reflux: PPI #Metastatic HER-2 positive breast cancer: once improved, will be started on reduced dose Capecitabine #Hypovolemic hyponatremia: improved with IVFs #Leukocytosis: resolved. Due to dehydration. Negative GI panel. Cultures pending and abx as above #Weakness: PT/OT #Diet: regular #DVT ppx: Lovenox #Disp: cont inpt admission orthostatic hypotension, requires IVFs, abx. Subjective: no cough. Still having diarrhea. "Feel dry as bone" Objective: Vital Signs Temp Pulse Resp BP Pulse Ox 38.1 C 94 18 133/65 H 96 01/17/17 12:15 01/17/17 12:15 01/17/17 12:15 01/17/17 12:15 01/17/17 12:15 Laboratory Results 01/17/17 03:50 01/17/17 04:35 01/16/17 01/17/17 01/18/17 05:59 05:59 05:59 Intake Total 3301 340 Balance 3301 340 - Physical Exam Constitutional: no apparent distress Eyes: PERRL Ears, Nose, Mouth, Throat: moist mucous membranes, dry mucous membranes Cardiovascular: regular rate and rhythym Respiratory: no respiratory distress, no rales or rhonchi, No aegophony Gastrointestinal: normoactive bowel sounds, soft, non-tender abdomen, No tenderness Genitourinary: no bladder fullness, no bladder tenderness Skin: warm Musculoskeletal: full muscle strength Neurologic: AAOx3, CN II-XII Intact Psychiatric: interacting appropriately ICD10 Worksheet Patient Problems: Problems Problem Status Onset Diarrhea Acute Benign hypertension Active GERD - Gastroesophageal reflux disease Active History of non-Hodgkins lymphoma Active 04/11/85 Neoplasm of breast Active 08/02/12 Sensory neuropathy Active Pneumothorax Acute
[2017-01-17] MEDS ORDERED: MAGNESIUM SULF 2 GM/WATER 50 ML IV ONE (15:28)
[2017-01-17] MEDS ORDERED: PROTOCOL MAGNESIUM 1 DOSE IV PRN (15:28)
[2017-01-17] MEDS: AZITHROMYCIN 250 MG TAB PO SCH (21:28)
[2017-01-18] MEDS: NS 1,000 ML IV SCH ×2 (03:44→21:29)
[2017-01-18] MEDS: LOPERAMIDE HCL 2 MG CAP PO PRN (03:44)
[2017-01-18] MEDS: ENOXAPARIN 40 MG/0.4 ML SYR SC SCH (09:03)
[2017-01-18] MEDS: PANTOPRAZOLE SODIUM 40 MG TAB PO SCH (09:11)
--- NOTE | 2017-01-18 09:17 | SOAPPROG ---
SOAP Progress Note Assessment/Plan: Assessment: 1. Her 2+ metastatic breast cancer with RLL (base) and Left internal mammary LN met. She has been on capecitabine 2000 mg and tykerb 1000 mg and developed grade 2 diarrhea. She is depressed and is expressing her desire to not take any more treatment. 2. Diarrhea: More cramping overnight. Check a [address] Hysciamine 3. Esophagitis: PPI Plan: 01/17/17 09:34 01/18/17 09:16 Subjective: Hilda was diagnosed with Her 2 + recurrent metastatic breast cancer with a RLL ( base) of lung met and an internal mammary LN. She started on cap/tykerb after refusing docetaxel, herceptin, and pertuzumab. She came in with graade 2 diarrhea and heartburn. She feels worse this morning with diarrhea overnight with cramping. Objective: Vital Signs Temp Pulse Resp BP Pulse Ox 37.4 C 85 18 119/56 L 96 01/18/17 08:00 01/18/17 08:00 01/18/17 08:00 01/18/17 08:00 01/18/17 08:00 Laboratory Results 01/17/17 03:50 01/17/17 04:35 01/17/17 01/18/17 01/19/17 05:59 05:59 05:59 Intake Total 3301 3140 Output Total 200 Balance 3301 2940 Abdomen non tender. No calf pain. Lungs clear. ICD10 Worksheet Patient Problems: Problems Problem Status Onset Neoplasm of breast Active 08/02/12 Sensory neuropathy Active History of non-Hodgkins lymphoma Active 04/11/85 Benign hypertension Active GERD - Gastroesophageal reflux disease Active Pneumothorax Acute Diarrhea Acute
[2017-01-18] MEDS: HYOSCYAMINE SULFATE 0.125 MG TAB PO PRN ×3 (09:32→21:31)
[2017-01-18] MEDS ORDERED: MAGNESIUM SULF 2 GM/WATER 50 ML IV ONE (10:00)
--- NOTE | 2017-01-18 12:14 | ASMTCMCOM ---
CM Note CM Note Notes: Chart reviewed. Patient lives at independent living. Discharged from PT. No needs identified. CM available should needs arise. Date Signed: 01/18/2017 12:13 PM Electronically Signed By:Viviane Loyola RN
[2017-01-18 15:17] LABS: HEMATOCRIT 27.1 % (38.0-47.0); HEMOGLOBIN 9.7 g/dL (12.6-16.3); MEAN CELL HEMOGLOBIN 31.5 pg (27.9-34.1); MEAN CELL HEMOGLOBIN CONCENTR. 35.8 g/dL (32.4-36.7); RED BLOOD CELL COUNT 3.08 10^6/uL (4.18-5.33)
[2017-01-18 15:19] LABS: RED CELL DISTRIBUTION WIDTH 20.9 % (11.5-15.2)
[2017-01-18 15:39] LABS: ANION GAP 10 mEq/L (8-16); CALCIUM 7.1 mg/dL (8.5-10.4); CARBON DIOXIDE 16 mEq/l (22-31); CHLORIDE 103 mEq/L (97-110); CREATININE 0.9 mg/dL (0.6-1.0); GLOMERULAR FILTRATION RATE > 60; GLUCOSE 107 mg/dL (70-100); MAGNESIUM 1.9 mg/dL (1.6-2.3); POTASSIUM 3.2 mEq/L (3.5-5.2); SODIUM 129 mEq/L (134-144)
--- NOTE | 2017-01-18 16:03 | HOSPPROG ---
Hospitalist Progress Note Assessment/Plan: DIAGNOSES: -acute complicated urinary tract infection with high fevers and -gram-negative ori urinary tract infection -chemotherapy-induced diarrhea -hyponatremia, most likely due to GI losses; unchanged from yesterday -I do not think she has pneumonia; I think chest x-ray changes like due to poor lung expansion and she did indeed have recently have pneumothorax and pleural effusion on that side PLANS: Continue empiric antibiotics awaiting for cultures Continue IV hydration and electrolyte replacement Antidiarrheals SUBJECTIVE: Her major complaint at this time is ongoing diarrhea, though this is decreased to 2 stools so far today, and bed malaise and fatigue. She denies any respiratory symptoms, and denies any urinary symptoms specifically. She has had some ongoing chills during the day today OBJECTIVE Vitals reviewed: T-max again last night 39.5, so far normal temperatures today , vitals otherwise stable Communication Center Operator, my review: Exam: alert oriented skin warm dry color ok resps not labored At this time she is not wanting to have any further physical examination including lungs heart and abdomen and so these are deferred iv site ok Laboratory data: White blood cell count continues to improve Culture data: Urine cultures with Gram-negative rods, id and sensitivity pending, blood cultures negative to date Objective: Vital Signs Temp Pulse Resp BP Pulse Ox 37.2 C 85 18 119/56 L 96 01/18/17 11:30 01/18/17 08:00 01/18/17 08:00 01/18/17 08:00 01/18/17 08:00 Laboratory Results 01/18/17 15:03 01/18/17 15:03 01/17/17 01/18/17 01/19/17 06:59 06:59 06:59 Intake Total 3301 3140 Output Total 200 Balance 3301 2940 ICD10 Worksheet Patient Problems: Problems Problem Status Onset Diarrhea Acute Benign hypertension Active GERD - Gastroesophageal reflux disease Active History of non-Hodgkins lymphoma Active 04/11/85 Neoplasm of breast Active 08/02/12 Sensory neuropathy Active Pneumothorax Acute
[2017-01-18] MEDS: AZITHROMYCIN 250 MG TAB PO SCH (21:31)
[2017-01-18] MEDS ORDERED: POTASSIUM CL 20 MEQ TAB PO ONE (23:30)
[2017-01-19] MEDS: HYOSCYAMINE SULFATE 0.125 MG TAB PO PRN ×4 (03:23→21:49)
[2017-01-19 05:48] LABS: ANION GAP 7 mEq/L (8-16); CALCIUM 6.8 mg/dL (8.5-10.4); CARBON DIOXIDE 17 mEq/l (22-31); CHLORIDE 106 mEq/L (97-110); CREATININE 0.8 mg/dL (0.6-1.0); GLOMERULAR FILTRATION RATE > 60; GLUCOSE 96 mg/dL (70-100); MAGNESIUM 1.8 mg/dL (1.6-2.3); POTASSIUM 3.1 mEq/L (3.5-5.2); SODIUM 130 mEq/L (134-144)
--- NOTE | 2017-01-19 07:17 | SOAPPROG ---
SOAP Progress Note Assessment/Plan: Assessment: 1. Her 2+ metastatic breast cancer with RLL (base) and Left internal mammary LN met. She has been on capecitabine 2000 mg and tykerb 1000 mg and developed grade 2 diarrhea. She is depressed and is expressing her desire to not take any more treatment. 2. Diarrhea: More cramping overnight. Hysociamine. 3. Esophagitis: PPI 4. UTI: E. coli infection. Sensitive to levaquin. We will switch her therapy. Plan: Encourage ambulation and ready for discharge soon. 01/17/17 09:34 01/18/17 09:16 01/19/17 07:56 Subjective: Hilda was diagnosed with Her 2 + recurrent metastatic breast cancer with a RLL ( base) of lung met and an internal mammary LN. She started on cap/tykerb after refusing docetaxel, herceptin, and pertuzumab. She came in with graade 2 diarrhea and heartburn. She feels worse this morning with diarrhea overnight with cramping. Objective: Vital Signs Temp Pulse Resp BP Pulse Ox 37.3 C 85 16 128/68 H 98 01/19/17 03:26 01/19/17 03:26 01/19/17 03:26 01/19/17 03:26 01/19/17 03:26 Microbiology 01/17/17 07:00 Urine Culture - Final Urine,Clean Catch Escherichia Coli#2 Escherichia Coli Two [place] Types Laboratory Results 01/18/17 15:03 01/19/17 05:14 01/18/17 01/19/17 01/20/17 05:59 05:59 05:59 Intake Total 3140 2975 Output Total 200 Balance 2940 2975 Awake. Alert. Lungs clear. Abdomen soft and nontender. No extremity tenderness. - Time Spent With Patient Time Spent With Patient: 30 min ICD10 Worksheet Patient Problems: Problems Problem Status Onset Neoplasm of breast Active 08/02/12 Sensory neuropathy Active History of non-Hodgkins lymphoma Active 04/11/85 Benign hypertension Active GERD - Gastroesophageal reflux disease Active Pneumothorax Acute Diarrhea Acute
[2017-01-19] MEDS ORDERED: POTASSIUM CL 20 MEQ TAB PO ONE (07:45)
[2017-01-19] MEDS: ENOXAPARIN 40 MG/0.4 ML SYR SC SCH (08:31)
[2017-01-19] MEDS: PANTOPRAZOLE SODIUM 40 MG TAB PO SCH (08:32)
[2017-01-19] MEDS ORDERED: MAGNESIUM SULF 1 GM/DEXTROSE 100 ML IV ONE (09:00)
[2017-01-19] MEDS: DIPHENOXYLATE/ATROPINE LOMOTIL 1 TAB PO PRN ×3 (09:42→21:49)
--- NOTE | 2017-01-19 17:38 | HOSPPROG ---
Hospitalist Progress Note Assessment/Plan: DIAGNOSES: -acute complicated urinary tract infection with high fevers and -gram-negative ori urinary tract infection -chemotherapy-induced diarrhea -hyponatremia, most likely due to GI losses; unchanged from yesterday -I do not think she has pneumonia; I think chest x-ray changes like due to poor lung expansion and she did indeed have recently have pneumothorax and pleural effusion on that side PLANS: Continue antibiotics but this time can switch to oral quinolone Continue IV hydration and electrolyte replacement Antidiarrheals She has mentioned to both Dr. Flowers and to me that she has a desire at this time to not go through any more chemotherapy or other tumor directed treatments other than palliative. Once we get her through this acute illness will proceed with palliative consultation and she may potentially benefit from hospice care SUBJECTIVE: 5 no fever symptoms today and her diarrhea is slowing somewhat. Still feels very weak and tired OBJECTIVE Vitals reviewed: No fever past 28 hours, vitals otherwise stable Exam: alert oriented skin warm dry color ok resps not labored At this time she is not wanting to have any further physical examination including lungs heart and abdomen and so these are deferred iv site ok Culture data: Urine cultures with 2 E coli organisms both sensitive to Rocephin and quinolones Objective: Vital Signs Temp Pulse Resp BP Pulse Ox 37.3 C 93 20 141/75 H 98 01/19/17 16:27 01/19/17 16:27 01/19/17 16:27 01/19/17 16:27 01/19/17 16:27 Microbiology 01/17/17 07:00 Urine Culture - Final Urine,Clean Catch Escherichia Coli#2 Escherichia Coli Two [place] Types Laboratory Results 01/18/17 15:03 01/19/17 05:14 01/18/17 01/19/17 01/20/17 06:59 06:59 06:59 Intake Total 3140 2975 1950 Output Total 200 Balance 2940 2975 1950 ICD10 Worksheet Patient Problems: Problems Problem Status Onset Diarrhea Acute Benign hypertension Active GERD - Gastroesophageal reflux disease Active History of non-Hodgkins lymphoma Active 04/11/85 Neoplasm of breast Active 08/02/12 Sensory neuropathy Active Pneumothorax Acute
[2017-01-19] MEDS: NS 1,000 ML IV SCH (23:46)
[2017-01-20] MEDS: DIPHENOXYLATE/ATROPINE LOMOTIL 1 TAB PO PRN ×4 (05:02→22:41)
[2017-01-20] MEDS: HYOSCYAMINE SULFATE 0.125 MG TAB PO PRN ×2 (05:03→12:08)
--- NOTE | 2017-01-20 07:25 | SOAPPROG ---
SOAP Progress Note Assessment/Plan: Assessment: 1. Her 2+ metastatic breast cancer with RLL (base) and Left internal mammary LN met. She has been on capecitabine 2000 mg and tykerb 1000 mg and developed grade 2 diarrhea. She is depressed and is expressing her desire to not take any more treatment. The prognosis WO treatment may well be greater than a year because she has minimal tumor burden even WO treatment. 2. Diarrhea: Resolved. 3. Esophagitis: PPI 4. UTI: E. coli infection. Sensitive to levaquin. No fever. Plan: Encourage ambulation and ready for discharge today with follow up Tuesday in the office. 01/17/17 09:34 01/18/17 09:16 01/19/17 07:56 01/20/17 07:31 Subjective: Hilda was diagnosed with Her 2 + recurrent metastatic breast cancer with a RLL ( base) of lung met and an internal mammary LN. She started on cap/tykerb after refusing docetaxel, herceptin, and pertuzumab. She came in with grade 2 diarrhea and heartburn. She is hungry this morning. She also had an e.Coli UTI. Much better today. Objective: Vital Signs Temp Pulse Resp BP Pulse Ox 37.0 C 90 18 137/66 H 95 01/20/17 05:28 01/20/17 05:28 01/20/17 05:28 01/20/17 05:28 01/20/17 05:28 Microbiology 01/17/17 07:00 Urine Culture - Final Urine,Clean Catch Escherichia Coli#2 Escherichia Coli Two [place] Types Laboratory Results 01/18/17 15:03 01/19/17 05:14 01/19/17 01/20/17 01/21/17 05:59 05:59 05:59 Intake Total 2975 2950 Balance 2975 2950 abdomen soft nontender ICD10 Worksheet Patient Problems: Problems Problem Status Onset Diarrhea Acute Benign hypertension Active GERD - Gastroesophageal reflux disease Active History of non-Hodgkins lymphoma Active 04/11/85 Neoplasm of breast Active 08/02/12 Sensory neuropathy Active Pneumothorax Acute
[2017-01-20] MEDS: ENOXAPARIN 40 MG/0.4 ML SYR SC SCH (09:29)
[2017-01-20] MEDS: PANTOPRAZOLE SODIUM 40 MG TAB PO SCH (09:29)
--- NOTE | 2017-01-20 16:49 | HOSPPROG ---
Hospitalist Progress Note Assessment/Plan: DIAGNOSES: -acute complicated urinary tract infection with high fevers and -gram-negative ori urinary tract infection, sensitive e coli -chemotherapy-induced diarrhea -hyponatremia, most likely due to GI losses; unchanged from yesterday -I do not think she has pneumonia; I think chest x-ray changes like due to poor lung expansion and she did indeed have recently have pneumothorax and pleural effusion on that side PLANS: Continue antibiotics but this time can switch to oral quinolone Antidiarrheals She has mentioned to both Dr. Flowers and to me that she has a desire at this time to not go through any more chemotherapy or other tumor directed treatments other than palliative. Once we get her through this acute illness will proceed with palliative consultation and she may potentially benefit from hospice care Hopefully home in am SUBJECTIVE: the patient was not willing to discuss her sypmtoms with me at this time per her nurse, has been eating a lot better, no vomiting, 2 stools so far today without bleeding OBJECTIVE Vitals reviewed: No fever, vitals otherwise stable Exam: alert oriented appears relaxed At this time she is not wanting to have any further physical examination including lungs heart and abdomen and so these are deferred iv site ok Culture data: Urine cultures with 2 E coli organisms both sensitive to Rocephin and quinolones Objective: Vital Signs Temp Pulse Resp BP Pulse Ox 37.3 C 98 18 127/73 H 99 01/20/17 16:12 01/20/17 16:12 01/20/17 16:12 01/20/17 16:12 01/20/17 16:12 Laboratory Results 01/18/17 15:03 01/19/17 05:14 01/19/17 01/20/17 01/21/17 06:59 06:59 06:59 Intake Total 2975 2950 250 Output Total 800 Balance 2975 2950 -550 ICD10 Worksheet Patient Problems: Problems Problem Status Onset Diarrhea Acute Benign hypertension Active GERD - Gastroesophageal reflux disease Active History of non-Hodgkins lymphoma Active 04/11/85 Neoplasm of breast Active 08/02/12 Sensory neuropathy Active Pneumothorax Acute
[2017-01-21] MEDS ORDERED: LOPERAMIDE HCL 2 MG CAP PO PRN (07:37)
--- NOTE | 2017-01-21 07:40 | SOAPPROG ---
SOAP Progress Note Assessment/Plan: Assessment: 1. Her 2+ metastatic breast cancer with RLL (base) and Left internal mammary LN met. She has been on capecitabine 2000 mg and tykerb 1000 mg and developed grade 2 diarrhea. She is depressed and is expressing her desire to not take any more treatment. The prognosis WO treatment may well be greater than a year because she has minimal tumor burden even WO treatment. 2. Diarrhea: Grade 1. I discussed diet. 3. Esophagitis: PPI 4. UTI: E. coli infection. Sensitive to levaquin. No fever. Plan: Encourage ambulation and ready for discharge today. I asked her ot to follow up in 2 weeks rather than on Tuesday. 01/17/17 09:34 01/18/17 09:16 01/19/17 07:56 01/20/17 07:31 01/21/17 07:38 Subjective: Hilda was diagnosed with Her 2 + recurrent metastatic breast cancer with a RLL ( base) of lung met and an internal mammary LN. She started on cap/tykerb after refusing docetaxel, herceptin, and pertuzumab. She came in with grade 2 diarrhea and heartburn. She is hungry this morning. She also had an e.Coli UTI. She had 3 Diarrhea BMs over last 12 hours. No N/V Objective: Vital Signs Temp Pulse Resp BP Pulse Ox 37.3 C 94 17 139/69 H 99 01/20/17 19:42 01/20/17 19:42 01/20/17 19:42 01/20/17 19:42 01/20/17 19:42 Laboratory Results 01/18/17 15:03 01/19/17 05:14 01/20/17 01/21/17 01/22/17 05:59 05:59 05:59 Intake Total 2950 700 Output Total 1100 Balance 2950 -400 Looks fine. Abd benign ICD10 Worksheet Patient Problems: Problems Problem Status Onset Neoplasm of breast Active 08/02/12 Sensory neuropathy Active History of non-Hodgkins lymphoma Active 04/11/85 Benign hypertension Active GERD - Gastroesophageal reflux disease Active Pneumothorax Acute Diarrhea Acute
[2017-01-21 07:48] VITALS: BP 123/71; PULSE 87; RESP 12; TEMP 98.6; O2SAT 97
[2017-01-21] MEDS: ENOXAPARIN 40 MG/0.4 ML SYR SC SCH ×2 (09:01→09:38)
[2017-01-21] MEDS: PANTOPRAZOLE SODIUM 40 MG TAB PO SCH (09:01)
--- NOTE | 2017-01-21 10:19 | PDDCSUM ---
Discharge Summary Discharge Summary: DISCHARGE DIAGNOSES: -acute complicated urinary tract infection with high fevers and -gram-negative ori urinary tract infection, sensitive e coli -chemotherapy-induced diarrhea -hyponatremia, most likely due to GI losses; unchanged from yesterday CONSULTANTS: Dr. Epifanio Flowers [facility] COURSE SUMMARY: This patient who has metastatic cancer on chemotherapy, comes in with both fever and urinary symptoms as well as diarrhea shortly after her last dose of chemotherapy. Stool studies did not show any pathologic organisms and she is felt to have chemotherapy-induced diarrhea that is fairly severe at the time of admission. Her fever was felt to be due to urinary tract infection and she did grow a sensitive E coli in urine cultures along with evidence of pyuria. She was admitted to the hospital treated with IV hydration and antibiotics for her urinary tract infection. She was treated with variety of antidiarrheals for her diarrhea. She still is having watery stools but they are markedly slowed from the time of presentation. Her fevers have now resolved she is well hydrated, and she is able to take in food and fluids well. There been no other complications. At this point she is felt stable for discharge to home. PENDING TEST RESULTS: None MEDICATION CHANGES: Addition of Levaquin 500 mg daily to complete a 7 day course of antibiotic FOLLOW-UP PLAN: With Dr. Flowers in 2 weeks Greater than 35 minutes bedside and care coordination time today
--- NOTE | 2017-01-21 16:32 | ASMTCMCOM ---
CM Note CM Note Notes: Pt to DC today. She will have no needs. Date Signed: 01/21/2017 04:32 PM Electronically Signed By:Carmella Izaguirre LCSW
== END 2017-01-21 17:55 | disposition home or self-care (01) | DRG 394 ==
LOC: F1N 18:42 → OBSVTOIN 01-16 13:21
PROVIDERS: ADMIT Internal Medicine; ATTEND Internal Medicine
DX: K52.1 Toxic gastroenteritis and colitis (principal); T45.1X5A Adverse effect of antineoplastic and immunosuppressive drugs, initial encounter; E86.0 Dehydration; E87.1 Hypo-osmolality and hyponatremia; I95.1 Orthostatic hypotension; N17.9 Acute kidney failure, unspecified; E83.42 Hypomagnesemia; N39.0 Urinary tract infection, site not specified; B96.20 Unspecified Escherichia coli [E. coli] as the cause of diseases classified elsewhere; C78.01 Secondary malignant neoplasm of right lung; C77.1 Secondary and unspecified malignant neoplasm of intrathoracic lymph nodes; Z85.3 Personal history of malignant neoplasm of breast; K21.9 Gastro-esophageal reflux disease without esophagitis; G62.2 Polyneuropathy due to other toxic agents; I10 Essential (primary) hypertension; Z85.72 Personal history of non-Hodgkin lymphomas
CPT/HCPCS: 97161-GP; G0378; G8978-GP-CI; G8979-GP-CI; G8980-GP-CI; J0696; J1650; J3475

== ENCOUNTER → 2017-03-16 | Outpatient (CLI) | payer OTHER | LOC: FIMAGING 13:07 | PROVIDERS: ATTEND Internal Medicine Hematology & Oncology | DX: R60.0 Localized edema (principal); Z85.72 Personal history of non-Hodgkin lymphomas ==

== ENCOUNTER → 2017-06-21 | Outpatient (CLI) | payer OTHER | LOC: BHFA 12:00 | PROVIDERS: ATTEND Internal Medicine Cardiovascular Disease | DX: Z51.11 Encounter for antineoplastic chemotherapy (principal) ==

== ENCOUNTER 2017-07-20 08:35 | Day surgery (SDC) | payer OTHER ==
--- NOTE | 2017-07-19 20:28 | GHP ---
[f rep st] HISTORY AND PHYSICAL DATE OF ADMISSION: 07/20/2017 CHIEF COMPLAINT: Metastatic breast cancer. HISTORY OF PRESENT ILLNESS: The patient is a 72-year-old woman with breast cancer, non-Hodgkin's lym phoma who was referred for a port consult. She is status post bilateral mastectomies and chemotherap y in 2012. She underwent additional chemo at the end of 2016 for recurrent disease. She previously had a right-sided chest port removed 4 years ago. PAST MEDICAL HISTORY: Breast cancer, non-Hodgkin's lymphoma. PAST SURGICAL HISTORY: Bilateral mastectomies with sentinel lymph node. Chest port placement and re moval. ALLERGIES: Oxycodone, iodine, hydrocodone. SOCIAL HISTORY: Nonsmoker. REVIEW OF SYSTEMS: 10-point review of systems negative except for HPI. PHYSICAL EXAMINATION: GENERAL: Pleasant, well-nourished, well-groomed woman. HEENT: Normocephalic . No gross hearing deficits. Mucous membranes moist. Pupils equal and round. No scleral icterus. LUNGS: Clear to auscultation bilaterally. No increased work of breathing. CARDIAC: Regular rate. No peripheral edema. SKIN: Warm and dry. NEUROLOGIC: Grossly intact. PSYCHIATRIC: Mood and af fect normal. IMPRESSION AND PLAN: A 72-year-old, with non-Hodgkin's lymphoma and metastatic breast cancer taken t o the operating room for port placement. The risks and benefits, including, but not limited to strok e, heart attack, , blood clots, infection, bleeding, and pneumothorax were discussed. She had h er questions answered to her satisfaction and signed the consent. /[id number]/MODL
[2017-07-20] MEDS ORDERED: ceFAZolin 2 GM/SWFI 2 GM/20 ML SYR IVP ONE (08:55)
[2017-07-20] MEDS ORDERED: LR 1,000 ML IV ONE (08:56)
[2017-07-20] MEDS ORDERED: LIDOCAINE 1% 2 ML INJ ID PRN (08:56)
[2017-07-20] MEDS ORDERED: BACITRACIN ZINC 14.2 GM OINTTUBE TP ONE (09:19)
[2017-07-20] MEDS ORDERED: BUPIVACAINE 0.5% 30 ML SDV ONE (09:19)
--- NOTE | 2017-07-20 10:43 | PDHPUP ---
History & Physical Update H&P update statement: This history and physical update is based on an assessment of the patient which was completed after admission or registration (within 24 hours), but prior to the surgery/procedure. H&P update: H&P reviewed & patient examined, no change in patient's condition since H&P completed
--- NOTE | 2017-07-20 11:04 | PDANEPAE ---
ANE History of Present Illness bCA here for CV access port ANE Past Medical History - Cardiovascular History Hx Hypertension: Yes Hx Arrhythmias: No Hx Chest Pain: No Hx Coronary Artery / Peripheral Vascular Disease: No Hx CHF / Valvular Disease: No Hx Palpitations: No - Pulmonary History Hx COPD: No Hx Asthma/Reactive Airway Disease: No Hx Recent Upper Respiratory Infection: No Hx Oxygen in Use at Home: No Hx Sleep Apnea: Yes Sleep Apnea Screening Result - Last Documented: Negative Pulmonary History Comment: lung CA - Neurologic History Hx Cerebrovascular Accident: No Hx Seizures: No Hx Dementia: No - Endocrine History Hx Diabetes: No - Renal History Hx Renal Disorders: No - Liver History Hx Hepatic Disorders: Yes Hepatic History Comment: fatty liver - Neurological & Psychiatric Hx Hx Neurological and Psychiatric Disorders: No Neurological / Psychiatric History Comment: pain at "waist line"-uses Meloxicam - Cancer History Hx Cancer: Yes Cancer History Comment: non hodgkins lymphoma-age 40. breast cancer. Lung CA tx w/chemo - Congenital Disorder History Hx Congenital Disorders: No - GI History Hx Gastrointestinal Disorders: No - Other Health History Other Health History: R chest port migrated;. skin rash -feet (eczema) - Chronic Pain History Chronic Pain: No - Surgical History Prior Surgeries: lung bx 2017. breast reduction surgery. B/l Mastectomy apprx 2013. hysterectomy 1980s ANE Review of Systems Review of Systems: - Exercise capacity METS (RN): 4 METS ANE Patient History - Allergies Allergies/Adverse Reactions: hydrocodone bitartrate [From Vicodin] Allergy (Severe, Verified 07/19/17 16:18) Vomiting iodine Allergy (Severe, Verified 07/19/17 16:18) "carotid closes up" oxycodone HCl [From Percocet] Allergy (Severe, Verified 07/19/17 16:19) Vomiting HAYFEVER Allergy (Mild, Uncoded 07/28/12 15:37) ITCHY EYES/SNEEZING/RUNNY NOSE - Home Medications Home Medications: Lisinopril/Hctz 20/12.5MG [Zestoretic/Prinzide 20/12.5MG (*)] 1 ea PO BID [Last Taken 07/19/17] Meloxicam 15 mg PO DAILY 01/15/17 [Last Taken 07/20/17] - NPO status NPO Status: no food or drink >8 hours NPO Since - Liquids (Date): 07/20/17 NPO Since - Liquids (Time): 07:30 NPO Since - Solids (Date): 07/19/17 NPO Since - Solids (Time): 23:00 - Anes Hx Anes Hx: post operative nausea and vomiting - Smoking Hx Smoking Status: Never smoked - Alcohol Use Alcohol Use: Rarely - Family Anes Hx Family Anes Hx: none Family Hx Anesthesia Complications: None ANE Labs/Vital Signs - Labs Result Diagrams: 07/20/17 09:21 - Vital Signs Blood Pressure: 166/81 Heart Rate: 69 Respiratory Rate: 16 O2 Sat (%): 97 Height: 157.48 cm Weight: 68.039 kg ANE Physical Exam - Airway Neck exam: FROM Mallampati Score: Class 2 Mouth exam: normal dental/mouth exam - Pulmonary Pulmonary: no respiratory distress, clear to auscultation - Cardiovascular Cardiovascular: regular rate and rhythym, no murmur, rub, or gallop - ASA Status ASA Status: III ANE Anesthesia Plan Anesthesia Plan: GA w LMA
[2017-07-20] MEDS ORDERED: MIDAZOLAM 2 MG/2 ML VIAL IVP ONE (11:07)
[2017-07-20] MEDS ORDERED: MIDAZOLAM 2 MG/2 ML VIAL ONE (11:10)
[2017-07-20] MEDS ORDERED: SCOPOLAMINE HYDROBROMIDE 1 MG/3 DAYS PATCH TD ONE (11:10)
[2017-07-20] MEDS ORDERED: PROPOFOL/EMULSION 500 MG/50 ML BOTTLE IV ONE ×3 (11:23→12:20)
[2017-07-20] MEDS ORDERED: ONDANSETRON 4 MG/2 ML VIAL ONE (11:53)
[2017-07-20] MEDS ORDERED: DEXAMETHASONE 4 MG/ML VIAL ONE (11:53)
[2017-07-20] MEDS ORDERED: ACETAMINOPHEN 500 MG TAB PO PRN (12:26)
[2017-07-20] MEDS ORDERED: PROMETHAZINE HCL 25 MG/ML INJ IVP PRN (12:26)
[2017-07-20] MEDS ORDERED: ONDANSETRON 4 MG/2 ML VIAL IVP PRN (12:26)
[2017-07-20] MEDS ORDERED: NALOXONE HCL 0.4 MG/ML INJ IVP PRN (12:26)
[2017-07-20] MEDS ORDERED: MEPERIDINE 25 MG/ML SYR IVP PRN (12:26)
--- NOTE | 2017-07-20 12:44 | POSTOPPROG ---
Post Op Note Date of Operation: 07/20/17 Surgeon: Marie Valverde Anesthesiologist: eloy Anesthesia: IV Sedation Pre-op Diagnosis: breast cancer Post-op Diagnosis: same Indication: 72 yo with met breast ca Procedure: R IJ port placement. Attempt on left Findings: abrupt angle inominate to svc Inf/Abcess present in the surg proc area at time of surgery?: No EBL: 100-500
[2017-07-20] MEDS ORDERED: ACETAMINOPHEN 500 MG TAB ONE (13:06)
--- NOTE | 2017-07-20 13:56 | POSTANESTH ---
Post Anesthetic Evaluation Cardiovascular Status: Normal, Stable, Similar to Pre-Op Cond Respiratory Status: Normal, Stable, Similar to Pre-op Cond. Level of Consciousness/Mental Status: Can Participate in Eval, Alert and Oriented Pain Control: Adequate, Prn Tx Ordered Nausea/Vomiting Control: Adequate, Prn Tx Ordered Complications Possibly Related to Anesthesia: None Noted
[2017-07-20 14:53] VITALS: BP 153/85
--- NOTE | 2017-07-20 17:56 | GOP ---
[f rep st] OPERATIVE REPORT DATE OF OPERATION: 07/20/2017 SURGEON: Marie Valverde MD ANESTHESIA: Monitored anesthesia care with IV sedation. ANESTHESIOLOGIST: Yusuf Rivera MD. PREOPERATIVE DIAGNOSIS: Metastatic breast cancer. POSTOPERATIVE DIAGNOSIS: Metastatic breast cancer. PROCEDURE PERFORMED: Right internal jugular ultrasound-guided PowerPort placement. FINDINGS: Tip in the SVC. SPECIMENS: None. ESTIMATED BLOOD LOSS: 150. INDICATIONS: The patient is a 72-year-old woman who has metastatic breast cancer. She presents for port for chemotherapy. DESCRIPTION OF PROCEDURE: Patient was brought into the operating room, placed supine on the table. Monitored anesthesia care with IV sedation was performed. No narcotics were used at the patient's re quest. Her bilateral neck and chest were prepped and draped in the usual sterile fashion. She was p laced in the Trendelenburg position. Using an ultrasound, I accessed her left internal jugular vein easily with dark return of blood flow. I threaded the guidewire and removed the needle. Placement w as confirmed with the wire in the IVC. I created a pocket to accommodate the port in the left chest. I tunneled it up to the insertion site. I placed a dilator and sheath over the wire; however had d ifficulty getting the wire around an acute angle from the innominate to the SVC. I tried multiple at tempts. I re-accessed the vein. I attempted a Glidewire in hopes to have a softer catheter to make the corner. This time, placement was shown that the wire in the azygos vein. After I tried this 2 m ore times, I abandoned the left side and then used the ultrasound to access the right internal jugula r vein on the right side. Dark return of blood flow was obtained. I threaded the guidewire and lucho myles the needle. Placement was confirmed in the IVC with fluoroscopy. I created a pocket to accommod ate the port in the right chest. I tunneled this up to the insertion site. I placed a dilator and s sun over the wire. I removed the wire and the dilator. I threaded the catheter through the sheath and peeled away the sheath. The catheter had been cut to size under fluoroscopy. I had to perform some adjustments of the catheter in order for it to have a nice round edge. The port withdrew blood easily and was flushed with heparin. Each pocket was closed with 3-0 Vicryl followed by 4-0 Monocryl . Skin closed with 4-0 Monocryl. Dermabond applied. She was awakened in the operating room, transf erred to PACU in stable condition. /[id number]/MODL
== END 2017-07-20 14:35 | disposition home or self-care (01) ==
LOC: FSGY 08:35
PROVIDERS: ATTEND Surgery
PROC: 06H033Z Insertion of Infusion Device into Inferior Vena Cava, Percutaneous Approach (ICD-10-PCS; principal; 2017-07-20 10:30)
PROC: 0JH60XZ Insertion of Tunneled Vascular Access Device into Chest Subcutaneous Tissue and Fascia, Open Approach (ICD-10-PCS; principal; 2017-07-20 10:30)
PROC: B5131ZA Fluoroscopy of Right Jugular Veins using Low Osmolar Contrast, Guidance (ICD-10-PCS; principal; 2017-07-20 10:30)
DX: C79.81 Secondary malignant neoplasm of breast (principal); C85.90 Non-Hodgkin lymphoma, unspecified, unspecified site; Z85.118 Personal history of other malignant neoplasm of bronchus and lung; Z90.13 Acquired absence of bilateral breasts and nipples
CPT/HCPCS: 36561; 71045; 76001; C1769; C1788; J0690; J1100; J1642; J2250; J2405; J2704

== ENCOUNTER 2018-06-18 19:57 | Inpatient (IN) | payer OTHER ==
[2018-06-18 20:29] LABS: PLATELET COUNT 222 10^3/uL (150-400)
[2018-06-18] MEDS ORDERED: LORazepam 2 MG/ML INJ ONE (20:46)
[2018-06-18] MEDS ORDERED: LORazepam 2 MG/ML INJ IVP ONE (20:47)
--- NOTE | 2018-06-18 20:50 | EDPHY ---
HPI/HX/ROS/PE/MDM Narrative: CHIEF COMPLAINT: Spasms, chest discomfort HISTORY OF PRESENT ILLNESS: This patient is a 73-year-old female with history of breast cancer metastatic to lung, currently undergoing chemotherapy and radiation treatment. She presents today with uncontrollable muscle jerking and a sensation of chest pressure. Around 19:00 this evening, she was on the phone and developed numb sensation behind her left ear. This travelled down her left arm and she began shaking uncontrollably in her left arm and having muscle spasms of the left side of her neck and shoulder and upper chest. Jerking symptoms developed at 7: 30 pm. She has a sensation of numbness and pressure in her back left shoulder blade. Reports the left upper extremity feels weak and discoordinated. Denies any right-sided symptoms. She denies headache. No history of tremors or seizures. She denies fever, chills, shortness of breath, palpitations, vomiting , diarrhea, urinary complaints, headache, lightheadedness. Of note, the patient has undergone chemotherapy for the past year, but began radiation to the right lower lobe of her lung for the first time last week. REVIEW OF SYSTEMS: A comprehensive 10 system review of systems is otherwise negative aside from elements mentioned in the history of present illness and medical decision making. PAST MEDICAL HISTORY: Breast cancer metastasized to lung. Hypertension. Takes meloxicam. SOCIAL HISTORY: Oncologist Dr. Leger at [facility]. VITAL SIGNS: Reviewed by me. HR 128. BP 149/84. GENERAL: Well-developed, well-nourished, resting comfortably in no respiratory distress. HEENT: Atraumatic. Eyes: No icterus, no injection. Mouth: moist mucous membranes. No erythema or lesions. Neck: supple with no adenopathy. LUNGS: Clear to auscultation bilaterally, no wheezes, rhonchi or rales. CARDIAC: Regular rate and rhythm, no rubs, murmurs or gallops. ABDOMEN: Soft, nontender, nondistended, bowel sounds normal. BACK: No CVA tenderness. EXTREMITIES: No trauma. No edema. Range of motion is normal throughout. NEURO: Alert and oriented. Cranial nerves 2-12 intact with the exception numbness in the left side of her face. Forehead is spared. 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 Dgrux-[id number]-hoht jerks in head, neck, left arm/chest/back /diaphragm. SKIN: Warm and dry, no rash. PSYCHIATRIC: Normal mentation, no agitation. Portions of this note were transcribed by a medical records tech. I personally performed a history, physical exam, medical decision making, and confirmed accuracy of information the transcribed note. ED Course: 73 y/o female presents with new onset pecyj-[id number]-snel jerks in head, neck, left arm/chest/back/diaphragm which began around 19:00 this evening. Plan for CXR, CT head and cervical spine. She states she cannot take narcotic pain medications due to vomiting. Plan to administer 0.5mg IV Ativan for symptom relief. She is amenable to this. Plan for labs including CBC, chemistries, troponin. Potassium is low at 2.9. Plan to administer 40meq PO KCl. 21:[address] Mckoy, radiologist. CT head/neck negative for acute processes. Recommend CTA head/neck for further evaluation, but patient has an iodine allergy. Consider MRI. Discussed imaging and laboratory results with patient. Plan for MRI brain for further evaluation to r/o brain metastases vs infarct or other acute processes. 22:50 Spoke with hospitalist service. Dr. Lewis accepts admission for left arm weakness, numbness, partial tonic-clonic activity. Plan to consult with neurology. Symptoms have improved somewhat, but she continues to complain of numbness in the LUE. Her weakness seems to have resolved. 22:57 Paged [facility]. Plan for possible telemedicine consult. 23:[address] Gomes, neurologist. He does not recommend tPA administration at this time given the patient's symptoms. He will await MRI results and consult as needed throughout the patient's admission. Patient's course also discussed with Dr. Lisa De [facility] from [facility]. Patient's breast cancer subtype is frequently metastatic to the brain. Patient's chemotherapeutic regiment should not result in seizure disorders. MDM: Differential diagnoses for the patient's symptom complex was considered including but not limited to brain metastases, stroke, seizure, cerebellar infarct, TIA, electrolyte abnormalities. - Data Points Imaging Results: Imaging Impressions Cervical Spine CT 06/18/18 20:54 Impression: Head CT within normal limits. If there is concern for meningeal carcinomatosis or brain metastasis, then consider MRI without and with contrast. 2. CT Cervical Spine Without Contrast, extended study, 21:11 PM History: Left arm , face and diaphragm. Chronic spasticity, left ear and neck numbness. Recent chemotherapy for metastatic breast cancer. Technique: Multi-slice ultrathin single breath-hold helical CT through the neck from the skull base through the thoracic inlet without contrast. The upper half of the cervical spine was scanned twice due to patient motion artifact. Soft tissue and bone window evaluation is performed. Sagittal and coronal reconstructions are obtained. Dose reduction techniques were utilized. Findings: The bones are osteoporotic vs diffusely involved with metastatic disease. There are no compression abnormalities or other pathologic fracture. Alignment is anatomic. No fracture or dislocation is identified. Disk spaces are well maintained. There are small posterior osteophytes and a calcification of the posterior longitudinal ligament at C6-C7. Facets are normally aligned and are intact. The skull base - C1 and C1-C2 relationships are normally aligned. There is severe osteoarthritis of the joint between the anterior ring of C1 and the odontoid. The odontoid process is intact. There is mild-moderate left C5-C6 foraminal stenosis secondary to uncovertebral joint spurs. There is no evidence of a prevertebral or epidural mass or hematoma. The cervical thoracic junction is normally aligned. A right-sided central venous catheter courses through the upper superior vena cava. There is severe osteoarthritic change of the left temporomandibular joint. Impression: Nothing acute identified. No evidence for central canal or severe foraminal stenosis. If symptoms persist cervical MRI without and with contrast might be useful. Results discussed with Dr. Ama Chaudhry at 21:45 PM. General information for patients regarding this examination can be found at [email or web address]. If you have questions or comments about this report, please contact me at (hospital) or [phone] (cell). Chest X-Ray 06/18/18 20:54 Impression: Normal. No evidence for pneumonia or intrathoracic metastatic disease. Head CT 06/18/18 20:54 Impression: Head CT within normal limits. If there is concern for meningeal carcinomatosis or brain metastasis, then consider MRI without and with contrast. 2. CT Cervical Spine Without Contrast, extended study, 21:11 PM History: Left arm , face and diaphragm. Chronic spasticity, left ear and neck numbness. Recent chemotherapy for metastatic breast cancer. Technique: Multi-slice ultrathin single breath-hold helical CT through the neck from the skull base through the thoracic inlet without contrast. The upper half of the cervical spine was scanned twice due to patient motion artifact. Soft tissue and bone window evaluation is performed. Sagittal and coronal reconstructions are obtained. Dose reduction techniques were utilized. Findings: The bones are osteoporotic vs diffusely involved with metastatic disease. There are no compression abnormalities or other pathologic fracture. Alignment is anatomic. No fracture or dislocation is identified. Disk spaces are well maintained. There are small posterior osteophytes and a calcification of the posterior longitudinal ligament at C6-C7. Facets are normally aligned and are intact. The skull base - C1 and C1-C2 relationships are normally aligned. There is severe osteoarthritis of the joint between the anterior ring of C1 and the odontoid. The odontoid process is intact. There is mild-moderate left C5-C6 foraminal stenosis secondary to uncovertebral joint spurs. There is no evidence of a prevertebral or epidural mass or hematoma. The cervical thoracic junction is normally aligned. A right-sided central venous catheter courses through the upper superior vena cava. There is severe osteoarthritic change of the left temporomandibular joint. Impression: Nothing acute identified. No evidence for central canal or severe foraminal stenosis. If symptoms persist cervical MRI without and with contrast might be useful. Results discussed with Dr. Ama Chaudhry at 21:45 PM. General information for patients regarding this examination can be found at [email or web address]. If you have questions or comments about this report, please contact me at (hospital) or [phone] (cell). Imaging: Discussed imaging studies w/ call center supervisor Radiologist, I viewed and interpreted images myself Laboratory Results: Laboratory Results 06/18/18 20:12 06/18/18 20:12 06/18/18 06/18/18 06/18/18 20:15 20:12 20:12 WBC 8.54 10^3/uL 10^3/uL (3.80-9.50) RBC 4.31 10^6/uL 10^6/uL (4.18-5.33) Hgb 12.8 g/dL g/dL (12.6-16.3) Hct 36.3 % L % (38.0-47.0) MCV 84.2 fL fL (81.5-99.8) MCH 29.7 pg pg (27.9-34.1) MCHC 35.3 g/dL g/dL (32.4-36.7) RDW 15.3 % H % (11.5-15.2) Plt Count 222 10^3/uL 10^3/uL (150-400) MPV 9.6 fL fL (8.7-11.7) Neut % (Auto) 51.2 % % (39.3-74.2) Lymph % (Auto) 33.4 % % (15.0-45.0) [place] % (Auto) 12.6 % % (4.5-13.0) Eos % (Auto) 2.0 % % (0.6-7.6) Baso % (Auto) 0.6 % % (0.3-1.7) Nucleat RBC Rel Count 0.0 % % (0.0-0.2) Absolute Neuts (auto) 4.37 10^3/uL 10^3/uL (1.70-6.50) Absolute Lymphs (auto) 2.85 10^3/uL 10^3/uL (1.00-3.00) Absolute Monos (auto) 1.08 10^3/uL H 10^3/uL (0.30-0.80) Absolute Eos (auto) 0.17 10^3/uL 10^3/uL (0.03-0.40) Absolute Basos (auto) 0.05 10^3/uL 10^3/uL (0.02-0.10) Absolute Nucleated RBC 0.00 10^3/uL 10^3/uL (0-0.01) Immature Gran % 0.2 % % (0.0-1.1) Immature Gran # 0.02 10^3/uL 10^3/uL (0.00-0.10) Sodium 135 mEq/L mEq/L (135-145) Potassium 2.9 mEq/L L mEq/L (3.5-5.2) Chloride 100 mEq/L mEq/L (97-110) Carbon Dioxide 19 mEq/l L mEq/l (22-31) Anion Gap 16 mEq/L H mEq/L (6-14) BUN 20 mg/dL mg/dL (7-23) Creatinine 1.0 mg/dL mg/dL (0.6-1.0) Estimated GFR 55 Glucose 124 mg/dL H mg/dL (70-100) Calcium 10.1 mg/dL mg/dL (8.5-10.4) POC Troponin I 0.00 ng/mL ng/mL (0.00-0.08) Medications Given: Discontinued Medications Lorazepam (Ativan Injection) 0.5 mg IVP EDNOW ONE Stop: 06/18/18 20:48 Last Admin: 06/18/18 20:52 Dose: 0.5 mg Potassium Chloride (Klor-Con) 40 meq PO ONCE ONE Stop: 06/18/18 21:01 Last Admin: 06/18/18 21:19 Dose: 40 meq Point of Care Test Results: Chemistry 06/18/18 20:15 POC Troponin I 0.00 ng/mL ng/mL (0.00-0.08) General Time Seen by Provider: 06/18/18 20:32 Initial Vital Signs: Initial Vital Signs Temperature (C) 36.7 C 06/18/18 20:08 Heart Rate 138 H 06/18/18 20:08 Respiratory Rate 22 H 06/18/18 20:08 Blood Pressure 184/90 H 06/18/18 20:08 O2 Sat (%) 95 06/18/18 20:08 O2 Delivery Mode Room Air Allergies/Adverse Reactions: hydrocodone bitartrate [From Vicodin] Allergy (Severe, Verified 07/19/17 16:18) Vomiting iodine Allergy (Severe, Verified 07/19/17 16:18) "carotid closes up" oxycodone HCl [From Percocet] Allergy (Severe, Verified 07/19/17 16:19) Vomiting HAYFEVER Allergy (Mild, Uncoded 07/28/12 15:37) ITCHY EYES/SNEEZING/RUNNY NOSE Home Medications: Medication Instructions Recorded Lisinopril/Hctz 20/12.5MG 1 ea PO BID 01/15/17 [Zestoretic/Prinzide 20/12.5MG (*)] Meloxicam 15 mg PO DAILY 01/15/17 Acetaminophen [Tylenol ES 500 mg 500 mg PO Q6HRS PRN tab 07/20/17 (*)] Unk Ca Med 06/18/18 Departure - Departure Disposition: [facility] Clinical Impression: LUE numbness, LUE weakness, Tonic clonic convulsion Condition: Fair Report Scribed for: Ama Chaudhry Report Scribed by: Yaima Davis Date of Report: 06/18/18 Time of Report: 20:53
[2018-06-18] MEDS ORDERED: POTASSIUM CL 20 MEQ TAB PO ONE (21:00)
[2018-06-18] MEDS ORDERED: ACETAMINOPHEN 325 MG TAB PO PRN (23:12)
[2018-06-18] MEDS ORDERED: ONDANSETRON 4 MG/2 ML VIAL IVP PRN (23:12)
[2018-06-18] MEDS ORDERED: ONDANSETRON DISINTEGRATING 4 MG TAB PO PRN (23:12)
--- NOTE | 2018-06-19 02:55 | PDGENHP ---
History and Physical - Chief Complaint L arm numbness, spasms - History of Present Illness 73 yo F w/ hx of breast CA and HTN presents with L arm numbness and spasms. The patient was on the phone today when she noted numbness behind her L ear that extended to her shoulder, arm, and side. Shortly after she developed repetitive spasms of her L arm. The episode last about 90 minutes. Some numbness remains at this time in her L arm and lateral chest wall. She denies other neurologic symptoms such as loss of consciousness, weakness, aphasia, or visual disturbance. She has not had similar issues in the past. In the ED a CTH was unremarkable. [facility] was consulted who did not recommend tPA due to atypical nature of symptoms and possibility of brain metastases in the setting of known brain cancer. She is being admitted for MRI and further evaluation. Case discussed with ED physician Dr. Chaudhry; records reviewed and summarized above. History Information - Allergies/Home Medication List Allergies/Adverse Reactions: hydrocodone bitartrate [From Vicodin] Allergy (Severe, Verified 07/19/17 16:18) Vomiting iodine Allergy (Severe, Verified 07/19/17 16:18) "carotid closes up" oxycodone HCl [From Percocet] Allergy (Severe, Verified 07/19/17 16:19) Vomiting HAYFEVER Allergy (Mild, Uncoded 07/28/12 15:37) ITCHY EYES/SNEEZING/RUNNY NOSE Home Medications: Lisinopril/Hctz 20/12.5MG [Zestoretic/Prinzide 20/12.5MG (*)] 1 ea PO BID [Last Taken 07/19/17] Meloxicam 15 mg PO DAILY 01/15/17 [Last Taken 07/20/17] Unk Ca Med 06/18/18 [Last Taken Unknown] I have personally reviewed and updated: family history, medical history - Past Medical History cancer (breast cancer, NHL), GERD, hypertension - Surgical History Reports: cancer surgery (mastectomy), hysterectomy Additional surgical history: cataract surgery. tonsillectomy - Family History Positive for: cancer (mother/aunt/cousin with breast cancer) - Social History Smoking Status: Never smoked Review of Systems Review of Systems: ROS: 10pt was reviewed & negative except for what was stated in HPI & below Physical Exam Physical Exam: Temp Pulse Resp BP Pulse Ox 36.6 C 93 16 135/71 H 94 06/19/18 01:05 06/19/18 01:05 06/19/18 01:05 06/19/18 01:05 06/19/18 01:05 Constitutional: no apparent distress, not in pain Eyes: PERRL, EOMI Ears, Nose, Mouth, Throat: moist mucous membranes, no oral mucosal ulcers Cardiovascular: regular rate and rhythym, no murmur, rub, or gallop Respiratory: no respiratory distress, clear to auscultation Gastrointestinal: normoactive bowel sounds, soft, non-tender abdomen Skin: warm, normal color Musculoskeletal: full muscle strength, no muscle tenderness Neurologic: AAOx3, numbness (L arm, L lateral chest wall; mild), CN II-XII Intact, No weakness, No facial droop Psychiatric: interacting appropriately, not anxious Lab Data & Imaging Review 06/18/18 20:12 06/18/18 20:12 WBC 8.54 10^3/uL (3.80-9.50) 06/18/18 20:12 RBC 4.31 10^6/uL (4.18-5.33) 06/18/18 20:12 Hgb 12.8 g/dL (12.6-16.3) 06/18/18 20:12 Hct 36.3 % (38.0-47.0) L 06/18/18 20:12 MCV 84.2 fL (81.5-99.8) 06/18/18 20:12 MCH 29.7 pg (27.9-34.1) 06/18/18 20:12 MCHC 35.3 g/dL (32.4-36.7) 06/18/18 20:12 RDW 15.3 % (11.5-15.2) H 06/18/18 20:12 Plt Count 222 10^3/uL (150-400) 06/18/18 20:12 MPV 9.6 fL (8.7-11.7) 06/18/18 20:12 Neut % (Auto) 51.2 % (39.3-74.2) 06/18/18 20:12 Lymph % (Auto) 33.4 % (15.0-45.0) 06/18/18 20:12 [place] % (Auto) 12.6 % (4.5-13.0) 06/18/18 20:12 Eos % (Auto) 2.0 % (0.6-7.6) 06/18/18 20:12 Baso % (Auto) 0.6 % (0.3-1.7) 06/18/18 20:12 Nucleat RBC Rel Count 0.0 % (0.0-0.2) 06/18/18 20:12 Absolute Neuts (auto) 4.37 10^3/uL (1.70-6.50) 06/18/18 20:12 Absolute Lymphs (auto) 2.85 10^3/uL (1.00-3.00) 06/18/18 20:12 Absolute Monos (auto) 1.08 10^3/uL (0.30-0.80) H 06/18/18 20:12 Absolute Eos (auto) 0.17 10^3/uL (0.03-0.40) 06/18/18 20:12 Absolute Basos (auto) 0.05 10^3/uL (0.02-0.10) 06/18/18 20:12 Absolute Nucleated RBC 0.00 10^3/uL (0-0.01) 06/18/18 20:12 Immature Gran % 0.2 % (0.0-1.1) 06/18/18 20:12 Immature Gran # 0.02 10^3/uL (0.00-0.10) 06/18/18 20:12 Sodium 135 mEq/L (135-145) 06/18/18 20:12 Potassium 2.9 mEq/L (3.5-5.2) L 06/18/18 20:12 Chloride 100 mEq/L (97-110) 06/18/18 20:12 Carbon Dioxide 19 mEq/l (22-31) L 06/18/18 20:12 Anion Gap 16 mEq/L (6-14) H 06/18/18 20:12 BUN 20 mg/dL (7-23) 06/18/18 20:12 Creatinine 1.0 mg/dL (0.6-1.0) 06/18/18 20:12 Estimated GFR 55 06/18/18 20:12 Glucose 124 mg/dL (70-100) H 06/18/18 20:12 Calcium 10.1 mg/dL (8.5-10.4) 06/18/18 20:12 POC Troponin I 0.00 ng/mL (0.00-0.08) 06/18/18 20:15 Imaging Review: Imaging Impressions Cervical Spine CT 06/18/18 20:54 Impression: Head CT within normal limits. If there is concern for meningeal carcinomatosis or brain metastasis, then consider MRI without and with contrast. 2. CT Cervical Spine Without Contrast, extended study, 21:11 PM History: Left arm , face and diaphragm. Chronic spasticity, left ear and neck numbness. Recent chemotherapy for metastatic breast cancer. Technique: Multi-slice ultrathin single breath-hold helical CT through the neck from the skull base through the thoracic inlet without contrast. The upper half of the cervical spine was scanned twice due to patient motion artifact. Soft tissue and bone window evaluation is performed. Sagittal and coronal reconstructions are obtained. Dose reduction techniques were utilized. Findings: The bones are osteoporotic vs diffusely involved with metastatic disease. There are no compression abnormalities or other pathologic fracture. Alignment is anatomic. No fracture or dislocation is identified. Disk spaces are well maintained. There are small posterior osteophytes and a calcification of the posterior longitudinal ligament at C6-C7. Facets are normally aligned and are intact. The skull base - C1 and C1-C2 relationships are normally aligned. There is severe osteoarthritis of the joint between the anterior ring of C1 and the odontoid. The odontoid process is intact. There is mild-moderate left C5-C6 foraminal stenosis secondary to uncovertebral joint spurs. There is no evidence of a prevertebral or epidural mass or hematoma. The cervical thoracic junction is normally aligned. A right-sided central venous catheter courses through the upper superior vena cava. There is severe osteoarthritic change of the left temporomandibular joint. Impression: Nothing acute identified. No evidence for central canal or severe foraminal stenosis. If symptoms persist cervical MRI without and with contrast might be useful. Results discussed with Dr. Ama Chaudhry at 21:45 PM. General information for patients regarding this examination can be found at [email or web address]. If you have questions or comments about this report, please contact me at (hospital) or [phone] (cell). Chest X-Ray 06/18/18 20:54 Impression: Normal. No evidence for pneumonia or intrathoracic metastatic disease. Head CT 06/18/18 20:54 Impression: Head CT within normal limits. If there is concern for meningeal carcinomatosis or brain metastasis, then consider MRI without and with contrast. 2. CT Cervical Spine Without Contrast, extended study, 21:11 PM History: Left arm , face and diaphragm. Chronic spasticity, left ear and neck numbness. Recent chemotherapy for metastatic breast cancer. Technique: Multi-slice ultrathin single breath-hold helical CT through the neck from the skull base through the thoracic inlet without contrast. The upper half of the cervical spine was scanned twice due to patient motion artifact. Soft tissue and bone window evaluation is performed. Sagittal and coronal reconstructions are obtained. Dose reduction techniques were utilized. Findings: The bones are osteoporotic vs diffusely involved with metastatic disease. There are no compression abnormalities or other pathologic fracture. Alignment is anatomic. No fracture or dislocation is identified. Disk spaces are well maintained. There are small posterior osteophytes and a calcification of the posterior longitudinal ligament at C6-C7. Facets are normally aligned and are intact. The skull base - C1 and C1-C2 relationships are normally aligned. There is severe osteoarthritis of the joint between the anterior ring of C1 and the odontoid. The odontoid process is intact. There is mild-moderate left C5-C6 foraminal stenosis secondary to uncovertebral joint spurs. There is no evidence of a prevertebral or epidural mass or hematoma. The cervical thoracic junction is normally aligned. A right-sided central venous catheter courses through the upper superior vena cava. There is severe osteoarthritic change of the left temporomandibular joint. Impression: Nothing acute identified. No evidence for central canal or severe foraminal stenosis. If symptoms persist cervical MRI without and with contrast might be useful. Results discussed with Dr. Ama Chaudhry at 21:45 PM. General information for patients regarding this examination can be found at [email or web address]. If you have questions or comments about this report, please contact me at [phone](hospital) or [phone] (cell). Visualized and Interpreted EKG results: Yes EKG Interpretation: Positive for: normal sinsus rhythm, other (Sinus tach), ST depression Assessment & Plan Assessment: 73 yo F w/ hx of breast CA and HTN presents with L arm numbness and spasms. Plan: 1. L arm numbness, spasms - Constellation of symptoms concerning for [employer] etiology. The initial concern was for brain metastases in the setting of known breast CA. MRI, however, demonstrates area of FLAIR and T2 signal abnormality concerning for ischemia possibly 2 weeks old. The patient continues to have mild numbness at this time. It is possible L arm spasms represent focal seizure. [facility] evaluated patient and did not recommend tPA. - Oncology and neurology services consulted - CTA contraindicated in setting of iodine allergy - Will obtain carotid ultrasound and TTE w/ bubble - Monitor on telemetry - Check lipid panel, A1c - PT/OT/FOOD AND BEVERAGE ASSISTANT evaluations - Ativan PRN if arm spasms return 2. Breast CA - Started XRT 06/16; on oral chemotherapy with trastuzumab. - Oncology consulted 3. HTN - Continue home medications pending reconciliation Diet - NPO pending RN swallow screen Code - Full Ppx - SCDs Dispo - Admit under observation status
[2018-06-19 04:55] LABS: PLATELET COUNT 204 10^3/uL (150-400)
--- NOTE | 2018-06-19 09:52 | HOSPPROG ---
Hospitalist Progress Note Assessment/Plan: 73 yo F w/ hx of breast CA and HTN presents with acute onset L arm numbness and spasms. MRI shows right sided lesion. #Left arm spasms/numbness with right precentral gyrus lesion: Most likely metastases and less likely ischemia however will round out stroke work up. - Discussed with Dr Almodovar of neurology - Starting on keppra - Obtaining brain MRI with contrast - Carotid ultrasound, TTE w/bubble ordered, telemetry - Will consult oncology this AM - PT/OT/RADIO ELECTRICIAN - Consider aspirin therapy based on imaging findings #Metastatic breast cancer: Followed by Dr Leger. Recently started XRT to right lung lesion. On trastuzumab. #HTN: Home meds. VTE ppx: SCDs Code: full Diet: regular Dispo: Continue observation with possibility of discharge later today pending results of above. If will require additional midnight, swill switch to inpatient. Subjective: Upset at mri findings. Left arm spasms/convulsions have stopped but still numb on left side. Motor function has essentially fully returned. Objective: Vital Signs Temp Pulse Resp BP Pulse Ox 36.9 C 90 16 131/67 H 94 06/19/18 07:31 06/19/18 07:31 06/19/18 07:31 06/19/18 07:31 06/19/18 07:31 Laboratory Results 06/19/18 04:20 06/19/18 04:20 06/18/18 06/19/18 06/20/18 05:59 05:59 05:59 Intake Total 1000 Balance 1000 - Physical Exam Constitutional: no apparent distress, appears nourished, not in pain Eyes: PERRL, anicteric sclera, EOMI Ears, Nose, Mouth, Throat: moist mucous membranes, hearing normal, ears appear normal, no oral mucosal ulcers Cardiovascular: regular rate and rhythym, no murmur, rub, or gallop Respiratory: no respiratory distress, no rales or rhonchi, clear to auscultation Gastrointestinal: normoactive bowel sounds, soft, non-tender abdomen, no palpable masses Genitourinary: no bladder fullness, no bladder tenderness, no renal bruits Skin: no rashes or abrasions, no fluctuance, no induration Neurologic: AAOx3, numbness (left upper extremity and left torso), CN II-XII Intact, No weakness, No facial droop Psychiatric: interacting appropriately, not anxious, not encephalopathic, thought process linear ICD10 Worksheet Patient Problems: Problems Problem Status Onset LUE numbness Acute LUE weakness Acute Tonic clonic convulsion Acute Benign hypertension Active GERD - Gastroesophageal reflux disease Active History of non-Hodgkins lymphoma Active 04/11/85 Neoplasm of breast Active 08/02/12 Sensory neuropathy Active Diarrhea Acute Pneumothorax Acute
[2018-06-19] MEDS: levETIRAcetam 500 MG TAB PO SCH ×2 (10:46→21:15)
--- NOTE | 2018-06-19 11:13 | GCON ---
[f rep st] CONSULTATION NEUROLOGY CONSULT REFERRING PHYSICIAN: Dr. Lewis CHIEF COMPLAINT: Left-sided involuntary movements. HISTORY OF PRESENT ILLNESS: The patient is a very pleasant 73-year-old lady who lives at [facility]. She tells me she has been dealing with breast cancer with history of lung metastases for 30+ years. She has never had any neurologic symptoms as a consequence of her cancer as far she knows. She has never had any TIA or stroke symptoms or diagnosis in the past. Last night, she was talking on the phone when she suddenly felt a numb paresthesia in her left face behind the ear, neck, which came on fairly acutely over a minute or 2, and then over the next 15 minutes, had a marching quality down her left proximal arm which became numb. She remained numb without any alteration of awareness for around 15 minutes. Then 15 minutes after the numbness began, she began having left arm involuntary movements. She acted out the motoric movement for me and it was not necessarily clonic in appearance but more irregular. It was not entirely clear what actually happened based on her reenactment of the symptoms. It appeared as if she had clonic activity proximally with more irregular movement distally in the left arm. In any case, the motor movement lasted 15 minutes, along with the numbness. She came to the ED, and after receiving Ativan, the involuntary movement in the left arm began to resolve. She still has numbness in the left face and proximal left arm. She was seen by [facility] in the ED, who did not recommend tPA because of possible seizure and brain metastasis. She had cervical CT which was negative and CT head showed no hemorrhage. She had a followup brain MRI which shows a FLAIR and T2 signal abnormality in the right precentral gyrus without diffusion restriction. In the radiology report, they also mention the possibility of subacute or chronic stroke. However, the patient has never had transient left-sided weakness or numbness or any symptoms referable to this lesion. REVIEW OF SYSTEMS: Ten-point review of systems was done and only pertinent to the HPI. For past medical history, social history, family history, home medications, and allergies, see Dr. Lewis's H and P. PHYSICAL EXAM: VITAL SIGNS: Blood pressure is 118/58, temperature 36.8, heart rate 80s. GENERAL: The patient is awake and alert. She is irritable at this time because of this new event but a very pleasant lady. NEUROLOGIC: Higher mental function is normal. On cranial nerve exam, she has some numbness in the left face, left lower face. Otherwise, face appears symmetric. Extraocular movements are full. On motor exam, she has mild left arm weakness. The lower extremities are symmetric and full strength. IMPRESSION AND PLAN: 1. Probable new onset focal seizure. 2. T2 lesion in the right precentral gyrus. The patient's clinical presentation is consistent with a first simple partial seizure emanating from the T2 lesion in the right precentral gyrus. In terms of symptomatic treatment, we will initiate Keppra 500 mg twice daily. We discussed potential risks, benefits, and alternatives of Keppra including the risk of moodiness, irritability, anger, suicidal or homicidal ideation. She is already irritable now because of the new event. Therefore, I have asked her to be aware of if there are any significant changes in her baseline mood now. She is agreeable. We will obtain an MRI brain with contrast to further evaluate the possibility of underlying brain metastases from her breast cancer. She is unable to tolerate any iodine, and therefore, we cannot move for with a CTA of the head and neck. Carotid ultrasound has been ordered, and we will proceed with this, along with an echo for basic stroke evaluation. We will also obtain MRA head and neck. If Oncology is okay with baby aspirin, we can initiate that for vascular prophylaxis. Overall, based on the entire clinical history, I am most suspicious for a new brain metastases because of the acute onset of her symptoms consistent with seizure and the absence of previous symptoms to suggest an old stroke in this region. She was counseled at length regarding our thoughts, findings, and plans moving forward. Indefinite driving restrictions and seizure precautions at this point. We appreciate the consultation. We will follow up on the above. Seventy total minutes floor time reviewing history, imaging, over 50% in direct counseling and coordination of care. /[id number]/MODL MTDD
[2018-06-19] MEDS ORDERED: GADOBUTROL 10 ML VIAL IVP ONE (11:57)
--- NOTE | 2018-06-19 12:20 | ECHO ---
[email or web address] [address] [address] Main: [phone] Echocardiography Examination Transthoracic Name: TREMAINE MORALES MR#: [id number] Study Date: 06/19/2018 Study Time: 11:10 AM Date of : 1945 Age: 73 year(s) Height: 154.9 cm (61 in.) Weight: 64.86 kg (143 lb.) BSA: 1.64 m2 Gender: Female Examination: Echo with Agitated Saline Contrast: Image Quality: Adequate Rhythm: Heart Rate: 87 bpm BP: 131 mmHg/67 mmHg Indication: TIA, L sided weakness, Breast CA, Mastectomy, spacers Procedure Staff Referring Physician: Sample Tailor: Chris Stone RDCS Reading Physician: Jian Carlos MD Requesting Provider: Indication: TIA, L sided weakness, Breast CA, Mastectomy, spacers Measurements Chambers AV/MV Label Value Normal Value Label Value Normal Value EF lower range (%) 70 % AV Opening, MM 2 cm EF upper range (%) 75 % AV PGmax 9 mmHg IVSd, 2D 0.8 cm (0.6cm - 1.1cm) AV PGmean 5 mmHg LVDd, 2D 3.4 cm (3.9cm - 5.3cm) AV Vmax, Caliper 1.47 m/s LVDs, 2D 2 cm (2.1cm - 4cm) SONDRA D (continuity eq. 2.4 cm2 LVEF, 2D 73 % (54% - 74%) Vmax) LVOT PGmax 6 mmHg SONDRA D (continuity eq. 3.2 cm2 LVOT PGmean 4 mmHg VTI) LVOT Vmax 1.23 m/s (0.7m/s - 1.1m/s) MV A Vmax 0.89 m/s LVOT Vmean 0.88 m/s MV E' lateral 0.06 m/s LVOTd 1.9 cm (1.8cm - 2cm) MV E' mean 0.06 m/s LVPWd, 2D 1 cm MV E' septal 0.05 m/s RVDd, 2D 2.5 cm (1.9cm - 3.8cm) MV E Vmax 0.54 m/s TAPSE 1.9 cm MV E/A 0.61 LA Area, A2C 10.8 cm2 (0cm2 - 20cm2) MV E/E' lateral 9 LA Volume, A2C 23 ml (22ml - 52ml) MV E/E' mean 9.82 Additional Vessels MV E/E' septal 10.1 (0.45 - 1.25) Label Value Normal Value TV/PV AoRoot, MM 2.7 cm (2.2cm - 3.7cm) Label Value Normal Value PV PGmax 3 mmHg Patient: TREMAINE MORALES Study Date: 06/19/2018 Page 1 of 3 11:10 AM PV Vmax, Caliper 0.91 m/s (0.6m/s - 0.9m/s) Conclusions A cause for the patient's weakness is not identified. There is no evidence of a cardiac sourse of embolus. If a cardiac source of embolus is strongly suspected consider MIRIAM. Off axis views were obtained due to post mastectomy tissue expanders.. Left Ventricle: Left ventricle is normal in size. There is no regional wall motion abnormalities. Left Atrium: The left atrium is normal in size. IAS: An agitated saline study was performed and was negative for intracardiac shunting. Mitral Valve: Mitral valve appears structurally normal. Aortic Valve: Aortic valve is poorly visualized. No aortic valve regurgitation. There is no aortic stenosis. Findings Off axis views were obtained due to post mastectomy tissue expanders.. Left Ventricle: Left ventricle is normal in size. Normal global systolic left ventricular function. The ejection fraction, measured by 2D, is 73 %. EF range is estimated at 70 % - 75 %. There is no regional wall motion abnormalities. Left ventricular diastolic function parameters are normal. No LV hypertrophy. Right Ventricle: Normal size right ventricle. Right ventricular systolic function is normal. Left Atrium: The left atrium is normal in size. IAS: An agitated saline study was performed and was negative for intracardiac shunting. Right Atrium: The right atrium is normal in size. Mitral Valve: Mitral valve appears structurally normal. No mitral regurgitation. No mitral valve stenosis. Aortic Valve: Aortic valve is poorly visualized. No aortic valve regurgitation. There is no aortic stenosis. Tricuspid Valve: There is no significant tricuspid regurgitation. Aorta: The aortic root size in M-mode measures 2.7 cm. Aorta Measurements AoRoot, MM is 2.7 cm. Exam Details Procedure Ordered: Echo with Agitated Saline Procedure Status: Routine study Image Quality: Adequate Facility Location: Cardiac Echo 1 Patient: TREMAINE MORALES Study Date: 06/19/2018 Page 2 of 3 11:10 AM (No Signature Object) Patient: TREMAINE MORALES Study Date: 06/19/2018 Page 3 of 3 11:10 AM [id number]
--- NOTE | 2018-06-19 15:53 | ASMTCMCOM ---
CM Note CM Note Notes: Met with patient to discuss any disposition needs. Patient declines the need for C follow-up. Cleared by OVERHAULER. CM available should needs arise. Plan: Independent Date Signed: 06/19/2018 03:52 PM Electronically Signed By:Riri Kelley RN
--- NOTE | 2018-06-19 18:02 | PDMN ---
Medical Necessity Medical necessity: [facility] MGN Neurology: 73 yo presents w/ L arm numbness and spasms in setting of breast ca. Initially OBS for workup but dx testing likely showing mets to the brain, not completely ruling out stroke, requiring additional MN for ongoing dx testing and tx. Cont tele monitoring, CTA ordered , PT/OT/MLT consults. Start Keppra. Onc and Neuro consults. Change to IP status 06/19/18@1714 per MD order.
--- NOTE | 2018-06-19 19:37 | GCON ---
[f rep st] CONSULTATION INPATIENT ONCOLOGY CONSULTATION DATE OF CONSULTATION: 06/19/[address] Quinn Leger. REASON FOR CONSULTATION: Apparent new brain metastasis due to HER-2 positive breast cancer. HISTORY OF PRESENT ILLNESS: The patient is a 73-year-old woman with a history of metastatic HER2 positive breast cancer. She has a remote history of follicular lymphoma in 1985. In July 2012 she developed a T2 N0, ER negative, HER2 positive breast cancer. She had a mastectomy and then was treated with Taxotere, carboplatin, and Herceptin. The Herceptin was completed in 2013. She presented then with metastatic disease to the lung. She received therapy with capecitabine and Tykerb, but did not tolerate it due to diarrhea. Then she developed some additional metastasis to bone and the adrenal glands in addition to the previous right lower lobe lung mass. This was in June of 2017. She then started on Kadcyla in July 2017. She has continued to take that therapy every 3 weeks intravenously since that time. Her recent PET-CT scan showed 1 site of progression in the right lower lobe, and it was decided to continue her on Kadcyla and refer her for stereotactic radiosurgery with Dr. Susanna Gunderson in [place]. She received her 1st cycle on Tuesday. Yesterday, she developed some numbness in the left side of her face followed by some twitching uncontrollably of her arm. She was brought to the hospital. A brain MRI performed without IV contrast showed some focal edema in the right precentral gyrus consistent with either subacute ischemia or metastatic disease. She has had the contrast portion performed this morning, but the report is not available. Her symptoms have resolved. She was seen by Neurology who recommended that she start on Keppra, which she refused. PAST MEDICAL HISTORY: 1. Metastatic HER 2 positive breast cancer as described above. 2. Remote history of follicular lymphoma. CURRENT MEDICATIONS: Include lisinopril, hydrochlorothiazide, and Keppra. ALLERGIC: To hydrocodone and oxycodone, as well as iodine contrast. FAMILY HISTORY: Noncontributory. SOCIAL HISTORY: She lives alone. She does not smoke cigarettes or drink alcohol. REVIEW OF SYSTEMS: Other than pertinent positives in HPI, a 14-point review of systems is negative. PHYSICAL EXAMINATION: VITAL SIGNS: Temperature was 36.8, blood pressure 134/80 , heart rate 87, O2 saturation 94% on room air. GENERAL: She was in no acute distress. HEENT: Sclerae anicteric. Oropharynx is clear. NECK: Supple. No lymphadenopathy. LUNGS: Clear to auscultation bilaterally. CARDIAC: Regular rate and rhythm. No murmurs, gallops, rubs. ABDOMEN: Normoactive bowel sounds. Nontender. Nondistended. EXTREMITIES: No edema. NEUROLOGIC: She is alert and oriented x3. Strength and sensation were grossly intact. There was no ataxia. Cranial nerves 2-12 are intact. LABORATORY DATA: Comprehensive metabolic panel and CBC were normal. IMPRESSION: This is a 73-year-old woman with a 6-year history of HER2 positive breast cancer. She now presents with what appears to be a partial seizure. Although an MRI is pending for confirmation, I highly suspect this is due to a brain metastasis which is unfortunately quite a common occurrence in women with HER2 positive breast cancer, particularly if they have had the disease for a number of years and their disease is otherwise well controlled. We discussed that the optimal approach to this is typically stereotactic radiosurgery if there are only 1 or 2 lesions. She is extremely reluctant to consider this because of her brother's bad experience receiving radiation therapy for glioblastoma. I explained that the radiation tan are much smaller and for patients who otherwise have good performance status this can be a very effective way of palliating the disease and helping them live longer and with fewer symptoms. She would like some time to think about it, and there is no need to make an immediate decision. I would recommend that she take the Keppra and particular if she is proceeding with radiation therapy, we could consider putting her on dexamethasone 4 mg twice daily as well to reduce vasogenic edema. She will otherwise continue the Kadcyla as we have been in the clinic. Thank you this consultation. We will continue to follow the patient in the hospital with you closely. /[id number]/MODL MTDD
[2018-06-19] MEDS: LISINOPRIL/HCTZ 20/12.5MG 1 EA TAB PO SCH (21:15)
--- NOTE | 2018-06-20 09:17 | NEUROPROG ---
Assessment: 1. History of breast cancer 2. New diagnosis of brain metastases 3. Focal seizure secondary to right precentral gyrus brain metastatic lesion Brain MRI with contrast showed approximately 8 subcentimeter likely brain metastatic lesions. She was counseled at length today. MRA head and neck showed no acute findings. carotid ultrasound showed no flow-limiting stenosis. Echocardiogram shows no source for cardiac embolus. No further stroke workup as needed as the patient now has a diagnosis of brain mets in terms of the initial lesion of concern. Going forward, she will stay on Keppra 500 mg twice daily for seizure prophylaxis. She was again counseled on risks, benefits and alternatives of Keppra. Recommendations: 1. Keppra 500 mg twice daily. She will need a prescription upon discharge and we will renew as an outpatient. 2. [address] of [address] restrictions and seizure precautions. she is agreeable. 3. Outpatient follow-up with me in 8-10 weeks. I have arranged this. We will call the patient to confirm. No further recommendations now. Will continue to follow as needed. Please do not hesitate to call if there are any questions or changes in neurologic status. 35 total minutes floor time; over 50% counseling and coordination of care. Subjective: No further seizures Objective: Vital Signs Temp Pulse Resp BP Pulse Ox 37.0 C 79 16 108/70 95 06/20/18 07:34 06/20/18 07:34 06/20/18 07:34 06/20/18 07:34 06/20/18 07:34 06/19/18 06/20/18 06/21/18 05:59 05:59 05:59 Intake Total 1100 Balance 1100 Awake alert No convulsive movements in my presence Allergies/Adverse Reactions: hydrocodone bitartrate [From Vicodin] Allergy (Severe, Verified 07/19/17 16:18) Vomiting iodine Allergy (Severe, Verified 07/19/17 16:18) "carotid closes up" oxycodone HCl [From Percocet] Allergy (Severe, Verified 07/19/17 16:19) Vomiting HAYFEVER Allergy (Mild, Uncoded 07/28/12 15:37) ITCHY EYES/SNEEZING/RUNNY NOSE
[2018-06-20] MEDS: levETIRAcetam 500 MG TAB PO SCH (09:30)
[2018-06-20] MEDS: LISINOPRIL/HCTZ 20/12.5MG 1 EA TAB PO SCH (09:30)
[2018-06-20 11:05] VITALS: BP 128/70
--- NOTE | 2018-06-20 12:44 | ASMTCMCOM ---
CM Note CM Note Notes: Patient seen in interdisciplinary rounds. PT and OT pending. Neurology signed off. Patient with new diagnosis of brain metastatic disease, CM to follow for needs. Plan: Likely home independent when medically cleared. Date Signed: 06/20/2018 12:44 PM Electronically Signed By:Viviane Loyola RN
--- NOTE | 2018-06-20 12:59 | SOAPPROG ---
SOAP Progress Note Assessment/Plan: Assessment: 1. her2+ breast cancer 2. Multiple brain mets (x8; all subcm) Plan: - i spoke to dr camara (rad onc) who will call patient to arrange completion of her SRS to the RLL lung lesion as well as to discuss treatment of the brain ( likely whole brain RT) - continue kadcyla - pt has appointment with Dr. Leger for 07/04 - continue keyovanira 25 min spent w/ pt and in coordination of care. 06/20/18 12:58 Subjective: feels well. Objective: exam unchanged Vital Signs Temp Pulse Resp BP Pulse Ox 36.8 C 84 16 128/70 H 93 06/20/18 11:02 06/20/18 11:02 06/20/18 11:02 06/20/18 11:02 06/20/18 11:02 06/19/18 06/20/18 06/21/18 05:59 05:59 05:59 Intake Total 1100 Balance 1100 ICD10 Worksheet Patient Problems: Problems Problem Status Onset LUE numbness Acute LUE weakness Acute Tonic clonic convulsion Acute Benign hypertension Active GERD - Gastroesophageal reflux disease Active History of non-Hodgkins lymphoma Active 04/11/85 Neoplasm of breast Active 08/02/12 Sensory neuropathy Active Diarrhea Acute Pneumothorax Acute
--- NOTE | 2018-06-20 13:36 | PDDCSUM ---
Discharge Summary Discharge Summary: Date of Admission: 06/18/2018 Date of Discharge: 06/20/2018 Consultants: neurology, oncology Studies: brain MRI w/wo contrast, MRA head/neck, TTE Discharge Diagnoses: 1. Left arm spasm and paresthesia consistent with focal seizure 2. Newly diagnosed metastatic brain lesions 3. Metastatic breast cancer 4. HTN Brief Hospital Course: 73 yo F w/ hx of metastatic breast CA presented with acute onset L arm numbness and spasms. MRI showed approximately 8 subcentimeter metastatic brain lesions. The largest lesion was located in the right precentral gyrus and likely lead to her presenting symptoms. She was evaluated by neurology. Stroke work up was negative. She was started on keppra for seizure prophylaxis. She had no recurrence of seizures while here. She was counseled on a 90 day driving restriction and given seizure precautions. Therapy services saw the patient and cleared her for discharge to home. She will follow up with onc and rad onc to discuss XRT to her brain (she had just begun XRT to lung lesion). She was continued on her kadcyla. Medications: Please refer to EMR for complete list. I wrote new prescription for Keppra 500mg BID. Follow Up Plan: 1. Keep scheduled oncology (Dr Leger, 07/04) and radiation oncology appointments to discuss therapy 2. Has neurology follow up arranged in 8 weeks Physical Exam: Vitals reviewed. Alert and oriented, rrr, lungs clear, abdomen soft, no edema, CN 2-12 intact, no weakness, normal reflexes, normal speech.
--- NOTE | 2018-06-20 13:50 | ASMTLACE ---
LACE Length of stay for Answers: Less than 1 day current admission Acuity / Level of Answers: Yes Care: Did the patient have an inpatient admission? Comorbidities - select Answers: Any tumor (including all that apply lymphoma or leukemia) Other Notes: HTN # of Emergency department Answers: 1-2 visits in the last 6 months Score: 7 Date Signed: 06/20/2018 01:49 PM Electronically Signed By:Viviane Loyola RN
--- NOTE | 2018-06-20 14:04 | ASMTDCNOTE ---
Case Management Discharge Discharge Order Complete? Answers: Yes Patient to Obtain Answers: Independently Medications Transportation Arranged Answers: Family/Friends Family Notified Answers: Yes Discharge Comments Notes: Patient medically cleared for discharge to home. No current needs. CM available should needs arise. Date Signed: 06/20/2018 01:51 PM Electronically Signed By:Viviane Loyola RN
== END 2018-06-20 17:15 | disposition home or self-care (01) | DRG 55 ==
LOC: EDUNIT# → INTOOBSV 22:58 → F1N 06-19 00:52 → OBSVTOIN 06-19 17:14
PROVIDERS: ADMIT Student in an Organized Health Care Education/Training Program; ATTEND Student in an Organized Health Care Education/Training Program
DX: C79.31 Secondary malignant neoplasm of brain (principal); C78.00 Secondary malignant neoplasm of unspecified lung; I10 Essential (primary) hypertension; Z85.3 Personal history of malignant neoplasm of breast; Z92.3 Personal history of irradiation; Z17.0 Estrogen receptor positive status [ER+]; Z85.72 Personal history of non-Hodgkin lymphomas
CPT/HCPCS: 70551-PN; 84484-ER; 92610-GN; 96374; 97165-GO; A9585; G0378; J2060

== ENCOUNTER 2018-09-13 15:40 | Inpatient (IN) | payer OTHER | END 2018-09-15 17:45 | disposition home health service (06) | LOC: F1N 18:56 ==